=== PATIENT | female | born 1950 | race Caucasian/White ===

== ENCOUNTER 2019-03-03 08:55 | Observation (INO) | payer MEDICARE, OTHER, MEDICAID ==
[2019-03-03] MEDS ORDERED: Sodium Chloride 0.9% 1,000 ML IV ONE (09:16)
--- NOTE | 2019-03-03 09:27 | EDM.PDOC ---
ED HPI GENERAL MEDICAL PROBLEM - General Chief Complaint: Genitourinary Problem Stated Complaint: POSSIBLE UTI Time Seen by Provider: 03/03/19 09:22 Source of Information: Reports: Patient, Long Term Records History Limitations: Reports: Other (Dementia) - History of Present Illness INITIAL COMMENTS - FREE TEXT/NARRATIVE: Sent from [facility] with fever and confusion since 0400 today. Nurse at this facility is concerned she may have a UTI. Apparently, the patient fell yesterday but there were no injuries. She was unable to swallow her medications this morning. Patient denies pain, sob or N/V/D. She is incontinent of urine on presentation to the ED. Onset Date: 03/03/19 Onset Time: 04:00 Severity: Moderate Associated Symptoms: Reports: Confusion, Fever/Chills - Related Data Allergies Allergy/AdvReac Type Severity Reaction Status Date / Time No Known Allergies Allergy Verified 03/03/19 10:13 Home Meds: Home Meds Albuterol [Proventil HFA] 2 puff INH Q4H PRN 04/04/15 [History] Aspirin [Halfprin] 81 mg PO DAILY@119904/04/15 [History] Divalproex Sodium [Depakote ER] 1,000 mg PO BEDTIME 04/04/15 [History] Docusate Sodium [Colace] 200 mg PO BID@04/04/15 [History] Hydrochlorothiazide 25 mg PO DAILY@119904/04/15 [History] Levothyroxine Sodium 50 mcg PO DAILY@0700 04/04/15 [History] Losartan Potassium [Cozaar] 100 mg PO DAILY@119904/04/15 [History] Nitroglycerin [Nitrostat] 0.4 mg SL ASDIRECTED PRN 04/04/15 [History] Omeprazole [Prilosec] 20 mg PO DAILY@04/04/15 [History] Sertraline [Zoloft] 200 mg PO 1200 04/04/15 [History] metFORMIN [Glucophage] 500 mg PO WITHBREAKFAST 04/04/15 [History] Acetaminophen/Diphenhydramine [Tylenol Pm Ex-Strength Caplet] 2 ea PO BEDTIME [History] LORazepam [Ativan] 0.5 mg PO BEDTIME 10/29/15 [History] Acetaminophen [Tylenol] 650 mg PO Q4H PRN 05/19/18 [History] Calcium Carbonate/Vitamin D3 [Calcium 500 + Vit D Caplet] 3 each PO DAILY [History] Carvedilol [Coreg] 6.25 mg PO BID 05/19/18 [History] Cholecalciferol (Vitamin D3) [Vitamin D3] 2,000 unit PO DAILY 05/19/18 [History] Donepezil [Aricept] 5 mg PO BEDTIME 05/19/18 [History] Menthol [Biofreeze] 1 applic TOP ASDIRECTED PRN 05/19/18 [History] Oxybutynin Chloride [Oxybutynin Chloride ER] 15 mg PO BEDTIME 05/19/18 [History] Polyethylene Glycol 3350 [MiraLAX] 1 tsp PO DAILY PRN 05/19/18 [History] Triamcinolone Acetonide [Triamcinolone Acetonide 0.1% Crm] 1 applic TOP TID PRN 05/19/18 [History] atorvaSTATin [Lipitor] 40 mg PO DAILY@1200 05/19/18 [History] Amoxicillin/Clavulanate K [Augmentin 875-125 MG] 1 tab PO BID #10 tablet [Rx] Past Medical History HEENT History: Reports: Cataract, Hard of Hearing, Impaired Vision Cardiovascular History: Reports: CAD, Cardiomyopathy, High Cholesterol, Hypertension, Other (See Below) (LBBB) Respiratory History: Reports: Asthma, COPD, Other (See Below) Other Respiratory History: PHARYNGITIS Gastrointestinal History: Reports: Colon Polyp, GERD Genitourinary History: Reports: Urinary Incontinence, Other (See Below) Other Genitourinary History: BENIGN ESSENTIAL HEMATURIA 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 DESIGNER 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: Reports: , Other (See Below) Other PROSTHETIC MAKEUP DESIGNER History: MISCARRIAGE Musculoskeletal History: Reports: Back Pain, Chronic, Fracture, Neck Pain, Chronic, Other (See Below) Other Musculoskeletal History: ABNORMAL BODY STRUCTURE PER HX, NEUROMUSCULAR DISORDER Neurological History: Reports: Alzheimers Disease, Head Trauma, Neuropathy, Peripheral Psychiatric History: Reports: Anxiety, Bipolar, Depression Endocrine/Metabolic History: Reports: Diabetes, Type II, Hypothyroidism Hematologic History: Reports: None Immunologic History: Reports: None Oncologic (Cancer) History: Reports: None Dermatologic History: Reports: None - Infectious Disease History Infectious Disease History: Reports: Chicken Pox, Measles, Mumps - Past Surgical History Head Surgeries/Procedures: Reports: None HEENT Surgical History: Reports: Cataract Surgery, Tonsillectomy, Visual Oncologic Surgical History: Reports: None Dermatological Surgical History: Reports: None Social & Family History - Family History Family Medical History: Noncontributory - Caffeine Use Caffeine Use: Reports: Soda Other Caffeine Use: 6 per day ED ROS GENERAL - Review of Systems Review Of Systems: Unable To Obtain (secondary to dementia) ED EXAM, GENERAL - Physical Exam Exam: See Below Exam Limited By: No Limitations General Appearance: Alert, WD/WN, No Apparent Distress Eye Exam: Bilateral Eye: EOMI, PERRL Ears: Normal External Exam Nose: Normal Inspection Throat/Mouth: No Airway Compromise, Other (oropharynx dry) Head: Atraumatic, Normocephalic Neck: Normal Inspection, Supple, Non-Tender, Full Range of Motion Respiratory/Chest: No Respiratory Distress, Lungs Clear, Normal Breath Sounds Cardiovascular: Regular Rate, Rhythm, No Murmur GI/Abdominal: Normal Bowel Sounds, Soft, Non-Tender Back Exam: Full Range of Motion Extremities: Normal Range of Motion Neurological: Alert, No Motor/Sensory Deficits, Other (GCS 14) Skin Exam: Warm, Dry, Intact EKG INTERPRETATION EKG Date: 03/03/19 Time: 10:58 Rhythm: NSR Rate (Beats/Min): 97 [place]: Normal P-Wave: Present QRS: LBBB ST-T: Normal QT: Normal Comparison: No Change (05/19/18) Course - Vital Signs Last Recorded V/S: Last Vital Signs Temp 37.4 C 03/03/19 09:46 Pulse 97 03/03/19 09:46 Resp 22 H 03/03/19 09:46 BP 94/62 03/03/19 09:46 Pulse Ox 90 L 03/03/19 09:46 - Orders/Labs/Meds Orders: Active Orders 24 hr Category Date Time Status Admission Status [Patient Status] [ADT] Routine ADT 03/03/19 10:56 Ordered Accu Check [Blood Glucose Check, Bedside] [RC] ONETIME Care 03/03/19 09:22 Active EKG Documentation Completion [RC] ASDIRECTED Care 03/03/19 09:10 Active Kelsey Catheter Insertion [Insert Urinary Catheter] [OM. Care 03/03/19 09:15 Ordered PC] Q24H Urinary Catheter Assessment [RC] QSHIFT Care 03/03/19 09:10 Active CULTURE BLOOD [BC] Urgent Lab 03/03/19 09:30 Received CULTURE BLOOD [BC] Urgent Lab 03/03/19 09:35 Received CULTURE URINE [RM] Stat Lab 03/03/19 09:13 Received Levofloxacin/Dextrose 5%-Water [Levaquin in D5W 750 MG/ Med 03/03/19 10:16 Active 150 ML] 750 mg Premix Bag 1 bag IV ONETIME Sodium Chloride 0.9% [Normal Saline] 1,000 ml Med 03/03/19 09:16 Active IV .BOLUS Blood Culture x2 Reflex Set [OM.PC] Urgent Oth 03/03/19 09:10 Ordered EKG 12 Lead [EK] Stat Ther 03/03/19 09:10 Ordered Medication Orders Sodium Chloride (Normal Saline) 1,000 mls @ 500 mls/hr IV .BOLUS ONE Stop: 03/03/19 11:15 Last Admin: 03/03/19 09:27 Dose: 500 mls/hr Levofloxacin/Dextrose 750 mg/ (Premix) 150 mls @ 100 mls/hr IV ONETIME ONE Stop: 03/03/19 11:45 Last Admin: 03/03/19 10:30 Dose: 100 mls/hr Labs: Laboratory Tests 03/03/19 03/03/19 03/03/19 Range/Units 09:13 09:30 09:30 WBC 5.8 (4.5-12.0) X10-3/uL RBC 4.87 (3.23-5.20) x10(6)uL Hgb 13.8 (11.5-15.5) g/dL Hct 41.6 (30.0-51.3) % MCV 85.4 (80-96) fL MCH 28.3 (27.7-33.6) pg MCHC 33.2 (32.2-35.4) g/dL RDW 13.8 (11.5-15.5) % Plt Count 99 L (125-369) X10(3)uL Neut % (Auto) 73.6 (46-82) % Lymph % (Auto) 12.8 L (13-37) % Williams % (Auto) 12.6 H (4-12) % Eos % (Auto) 0 L (1.0-5.0) % Baso % (Auto) 1 (0-2) % Neut # (Auto) 4.3 (1.6-8.3) # Lymph # (Auto) 0.7 (0.6-5.0) # Williams # (Auto) 0.7 (0.0-1.3) # Eos # (Auto) 0.0 (0.0-0.8) # Baso # (Auto) 0.0 (0.0-0.2) # Sodium 138 (135-145) mmol/L Potassium 3.8 (3.5-5.3) mmol/L Chloride 104 (100-110) mmol/L Carbon Dioxide 28 (21-32) mmol/L BUN 11 (7-18) mg/dL Creatinine 0.7 (0.55-1.02) mg/dL Est Cr Clr Drug Dosing 63.63 mL/min Estimated GFR (MDRD) > 60 (>60) BUN/Creatinine Ratio 15.7 (9-20) Glucose 109 (80-116) mg/dL Lactic Acid (0.4-2.2) mmol/L Calcium 9.0 (8.6-10.2) mg/dL Total Bilirubin 0.3 (0.1-1.3) mg/dL AST 21 D (5-25) IU/L ALT 16 D (12-36) U/L Alkaline Phosphatase 49 L (56-112) IU/L Total Protein 6.9 (6.0-8.0) g/dL Albumin 3.0 L (3.2-4.6) g/dL Globulin 3.9 g/dL Albumin/Globulin Ratio 0.8 Urine Color Yellow (YELLOW) Urine Appearance Cloudy (CLEAR) Urine pH 8.0 H (5.0-6.5) Ur Specific [place] 1.010 (1.010-1.025) Urine Protein 30 H (NEGATIVE) mg/dL Urine Glucose (UA) Normal (NORMAL) mg/dL Urine Ketones Negative (NEGATIVE) mg/dL Urine Occult Blood Large (NEGATIVE) Urine Nitrite Positive H (NEGATIVE) Urine Bilirubin Negative (NEGATIVE) Urine Urobilinogen Normal (NEGATIVE) mg/dL Ur Leukocyte Esterase Large (NEGATIVE) Urine RBC >100 H (0-5) Urine WBC >100 H (0-5) Ur Squamous Epith Cells Few H (NS,R,O) Urine Bacteria Many H (NS) 03/03/19 Range/Units 09:30 WBC (4.5-12.0) X10-3/uL RBC (3.23-5.20) x10(6)uL Hgb (11.5-15.5) g/dL Hct (30.0-51.3) % MCV (80-96) fL MCH (27.7-33.6) pg MCHC (32.2-35.4) g/dL RDW (11.5-15.5) % Plt Count (125-369) X10(3)uL Neut % (Auto) (46-82) % Lymph % (Auto) (13-37) % Williams % (Auto) (4-12) % Eos % (Auto) (1.0-5.0) % Baso % (Auto) (0-2) % Neut # (Auto) (1.6-8.3) # Lymph # (Auto) (0.6-5.0) # Williams # (Auto) (0.0-1.3) # Eos # (Auto) (0.0-0.8) # Baso # (Auto) (0.0-0.2) # Sodium (135-145) mmol/L Potassium (3.5-5.3) mmol/L Chloride (100-110) mmol/L Carbon Dioxide (21-32) mmol/L BUN (7-18) mg/dL Creatinine (0.55-1.02) mg/dL Est Cr Clr Drug Dosing mL/min Estimated GFR (MDRD) (>60) BUN/Creatinine Ratio (9-20) Glucose (80-116) mg/dL Lactic Acid 1.2 (0.4-2.2) mmol/L Calcium (8.6-10.2) mg/dL Total Bilirubin (0.1-1.3) mg/dL AST (5-25) IU/L ALT (12-36) U/L Alkaline Phosphatase (56-112) IU/L Total Protein (6.0-8.0) g/dL Albumin (3.2-4.6) g/dL Globulin g/dL Albumin/Globulin Ratio Urine Color (YELLOW) Urine Appearance (CLEAR) Urine pH (5.0-6.5) Ur Specific [place] (1.010-1.025) Urine Protein (NEGATIVE) mg/dL Urine Glucose (UA) (NORMAL) mg/dL Urine Ketones (NEGATIVE) mg/dL Urine Occult Blood (NEGATIVE) Urine Nitrite (NEGATIVE) Urine Bilirubin (NEGATIVE) Urine Urobilinogen (NEGATIVE) mg/dL Ur Leukocyte Esterase (NEGATIVE) Urine RBC (0-5) Urine WBC (0-5) Ur Squamous Epith Cells (NS,R,O) Urine Bacteria (NS) Meds: Medications Generic Name Dose Route Start Last Admin Trade Name Freq PRN Reason Stop Dose Admin Sodium Chloride 1,000 mls @ 500 mls/hr 03/03/19 09:16 03/03/19 09:27 Normal Saline IV 03/03/19 11:15 500 mls/hr .BOLUS ONE Administration Levofloxacin/Dextrose 750 mg/ 150 mls @ 100 mls/hr 03/03/19 10:16 03/03/19 10 :30 Premix IV 03/03/19 11:45 100 mls/hr ONETIME ONE Administration Discontinued Medications Generic Name Dose Route Start Last Admin Trade Name Freq PRN Reason Stop Dose Admin Acetaminophen 650 mg 03/03/19 09:30 03/03/19 10:00 Tylenol PO 03/03/19 09:31 650 mg NOW ONE Administration Ceftriaxone Sodium 2 gm 03/03/19 10:19 03/03/19 10:23 Rocephin IVPUSH 03/03/19 10:20 2 gm ONETIME ONE Administration - Radiology Interpretation Free Text/Narrative:: CXR: possible infiltrate vs. fibrosis vs. edema (per Dr. Bailey). CT Head and C-spine: no acute abnormalities (per Dr. Bailey). - Re-Assessments/Exams Free Text/Narrative Re-Assessment/Exam: 03/03/19 11:01 Dr. Hughes will admit to observation. 03/03/19 11:05 BP 136/68, HR 88 Departure - Departure Time of Disposition: 11:01 Disposition: Refer to Observation Condition: Fair Clinical Impression: UTI, Urinary tract infectious disease Altered mental status Qualifiers: Altered mental status type: unspecified Qualified Code(s): R41.82 - Altered mental status, unspecified - Discharge Information *PRESCRIPTION DRUG MONITORING PROGRAM REVIEWED*: No *COPY OF PRESCRIPTION DRUG MONITORING REPORT IN PATIENT [place]: Not Applicable - My Orders Last 24 Hours: My Active Orders 03/03/19 09:10 EKG Documentation Completion [RC] ASDIRECTED Urinary Catheter Assessment [RC] QSHIFT Blood Culture x2 Reflex Set [OM.PC] Urgent EKG 12 Lead [EK] Stat 03/03/19 09:13 CULTURE URINE [RM] Stat 03/03/19 09:15 Kelsey Catheter Insertion [Insert Urinary Catheter] [OM.PC] Q24H 03/03/19 09:16 Sodium Chloride 0.9% [Normal Saline] 1,000 ml IV .BOLUS 03/03/19 09:22 Accu Check [Blood Glucose Check, Bedside] [RC] ONETIME 03/03/19 09:30 CULTURE BLOOD [BC] Urgent 03/03/19 09:35 CULTURE BLOOD [BC] Urgent 03/03/19 10:16 Levofloxacin/Dextrose 5%-Water [Levaquin in D5W 750 MG/150 ML] 750 mg Premix Bag 1 bag IV ONETIME 03/03/19 10:56 Admission Status [Patient Status] [ADT] Routine - Assessment/Plan Last 24 Hours: My Active Orders 03/03/19 09:10 EKG Documentation Completion [RC] ASDIRECTED Urinary Catheter Assessment [RC] QSHIFT Blood Culture x2 Reflex Set [OM.PC] Urgent EKG 12 Lead [EK] Stat 03/03/19 09:13 CULTURE URINE [RM] Stat 03/03/19 09:15 Kelsey Catheter Insertion [Insert Urinary Catheter] [OM.PC] Q24H 03/03/19 09:16 Sodium Chloride 0.9% [Normal Saline] 1,000 ml IV .BOLUS 03/03/19 09:22 Accu Check [Blood Glucose Check, Bedside] [RC] ONETIME 03/03/19 09:30 CULTURE BLOOD [BC] Urgent 03/03/19 09:35 CULTURE BLOOD [BC] Urgent 03/03/19 10:16 Levofloxacin/Dextrose 5%-Water [Levaquin in D5W 750 MG/150 ML] 750 mg Premix Bag 1 bag IV ONETIME 03/03/19 10:56 Admission Status [Patient Status] [ADT] Routine
[2019-03-03] MEDS ORDERED: Acetaminophen 325 MG Tab PO ONE (09:30)
[2019-03-03] MEDS ORDERED: Levofloxacin/Dextrose 5%-Water 750 MG in Premix Bag 1 BAG IV ONE (10:16)
[2019-03-03] MEDS ORDERED: cefTRIAXone 2 GM Vial IVPUSH ONE (10:19)
--- NOTE | 2019-03-03 10:53 | CR ---
INDICATION: Fever. CHEST: AP upright portable view of the chest, 03/03/19, was compared with 05/19 and again revealed the heart to be somewhat enlarged in appearance. The aorta is tortuous with calcification in the arch. The pulmonary vasculature appears to be mildly congested, raising question of a mild or chronic early CHF. Interstitial fibrosis could also be present. No consolidating pneumonia or effusion was seen. IMPRESSION: Fairly stable appearance of the chest, compared with 05/19/18 - ASHD, mild cardiomegaly, question possibility of mild chronic or early CHF and/ or interstitial fibrosis. The possibility of interstitial - unusual pneumonia would be a consideration additionally. Report was called to Dr. Huitron on 03/03/19 at 1021 hours. [facility]
--- NOTE | 2019-03-03 10:55 | CT ---
INDICATION: Fell yesterday, dementia, complains of pain, possibly in the neck area. CT HEAD WITHOUT CONTRAST: Spiral 3.75 mm axial sections were obtained through the brain without contrast and compared with MRI of 10/16/15. Total exam DLP = 1,296.53 mGy-cm. The paranasal sinuses and mastoid air cells were well-aerated. No cranial abnormality was identified. Calcifications are noted in the internal carotid arteries. No shift of midline structures was seen. The ventricles are prominent, compatible with central atrophy, and appear slightly more prominent than on the previous MRI of 2016, compatible with progressive central atrophy. White matter changes are again noted, compatible with a mild degree of microvascular disease, although other cause of leukoencephalopathy cannot be excluded. No evidence of bleeding site or hematoma was noted. Orbits appear to be intact. IMPRESSION: 1. Progressive central atrophy with no acute intracranial abnormality identified. 2. Mild microvascular disease - cerebrovascular disease. Report was called to Dr. Huitron on 03/03/19 at 1021 hours. [facility]
--- NOTE | 2019-03-03 10:58 | CT ---
INDICATION: Fell yesterday, dementia, complains of pain, possibly in the neck area. CT CERVICAL SPINE: Spiral 2.5 mm axial sections were obtained through the cervical spine with sagittal and coronal reconstructions, 03/03/19 - no comparisons. Total exam DLP = 317.90 mGy-cm. Mild degenerative changes are noted at the atlantoodontoid joint. The odontoid and atlas appear to be intact. Degenerative changes are noted at uncinate joints in general, most severe at the C3-4 and especially C4-5 levels. Decreased disk space is also noted at C4- 5 with hypertrophic spurring anteriorly and posteriorly off vertebral bodies. Decreased disk space was seen at C5-6 to a milder degree with no significant hypertrophic changes anteriorly off vertebral bodies at that level. Vertebral elements appear to be fairly well-aligned without a definite acute fracture or dislocation. Prevertebral space and bone density appear to be normal. Carotid artery calcifications are noted bilaterally. Lungs included on the study have an appearance suggesting central lobular emphysema. IMPRESSION: 1. Osteoarthritis and degenerative disk disease, as noted above, with no acute fracture or dislocation identified. 2. Probable emphysema in the lungs. Report was called to Dr. Huitron on 03/03/19 at 1021 hours. [facility]
[2019-03-03] MEDS ORDERED: Acetaminophen 325 MG Tab PO PRN (12:01)
[2019-03-03] MEDS ORDERED: Albuterol 8 GM Inhaler INH PRN (12:01)
[2019-03-03] MEDS: Sodium Chloride 0.9% 1,000 ML IV SCH (13:15)
[2019-03-03] MEDS: Levothyroxine 50 MCG Tab*PTOM PO SCH (14:24)
--- NOTE | 2019-03-03 14:52 | HP ---
ADMISSION DATE: 03/03/2019 HISTORY: Ms. Cope is a 68-year-old resident of [facility] with a history of dementia with behavioral disorder, history of bipolar disorder, coronary artery disease with cardiomyopathy, hypertension, and hypothyroidism. According to the staff at the [facility] where she resides she fell yesterday without apparently injuring herself. This morning, she was weak generally. She had difficulty swallowing and was more confused. She apparently had a fever as well. For this reason, she was sent to the emergency room where evaluation found her to have a significant urinary tract infection. She is now admitted with UTI with associated delirium, weakness, and dehydration. The patient is a poor historian. She does report that she is here for a bad bladder infection and she remembers that she lives at the [facility]. PAST MEDICAL HISTORY: 1. She has had dementia of bipolar affect disorder. 2. She is status post T and A. 3. Cataract surgery. 4. She has a history of anxiety. 5. Type 2 diabetes. 6. Hypothyroidism. 7. Asthma with COPD. 8. She has been diagnosed with cardiomyopathy and has a chronic left bundle branch block on EKG. MEDICATIONS: 1. Albuterol inhaler p.r.n. 2. Aspirin 81 mg daily. 3. Depakote ER 1000 mg at bedtime. 4. Colace 200 mg b.i.d. 5. Hydrochlorothiazide 25 mg daily. 6. Levothyroxine 50 mcg daily. 7. Losartan 100 mg daily. 8. Nitroglycerin sublingual p.r.n. 9. Omeprazole 20 mg daily. 10.Zoloft 200 mg daily. 11.Metformin 500 mg daily. 12.Tylenol PM 2 at bedtime. 13.Lorazepam 0.5 mg at bedtime. 14.Tylenol p.r.n. 15.Calcium with D 3 tablets daily. 16.Carvedilol 6.25 mg b.i.d. 17.Vitamin D3 2000 units daily. 18.Aricept 5 mg at bedtime. 19.Topical Biofreeze p.r.n. 20.Oxybutynin ER 15 one at bedtime. 21.MiraLAX 1 teaspoon daily p.r.n. 22.Triamcinolone cream t.i.d. p.r.n. 23.Atorvastatin 40 mg daily. ALLERGIES: None known. HABITS: She reports she smokes a pack a day of cigarettes and is trying to quit, she has smoked for many years. REVIEW OF SYSTEMS: GENERAL: No seizure, syncope, or recent significant weight change. SKIN: Negative for rash. HEENT: No recent changes in hearing or vision. No sore throat or URI. RESPIRATORY: No cough or dyspnea. No chest pain or palpitations. No abdominal pain. She has had a poor appetite, however. No diarrhea. : She denies burning with urination. MUSCULOSKELETAL: No swelling, joint inflammation, or skin rash. PHYSICAL EXAMINATION: GENERAL: She is alert and answers questions appropriately. She is, however, very forgetful with obvious dementia. VITAL SIGNS: Blood pressure 125/44; respirations 18; pulse 84; temperature max 99.3 in the emergency room, 97 currently; O2 saturation 90% on room air; weight 165 pounds. SKIN: Anicteric. Warm, dry, without rash. HEENT: Show pupils to be equal and reactive. Oropharynx clear. Mouth dry. LUNGS: Clear to the bases. BACK: Straight. She has slight tenderness to percussion over the right flank, none on the left. HEART: Regular with a soft end-systolic murmur directly over the mitral area. ABDOMEN: Obese, soft, nontender. No masses or organomegaly. EXTREMITIES: Warm, well perfused. Good pulses. No edema. NEUROLOGIC: Reveals her to be extremely forgetful. Motor exam appears symmetric. LABORATORY DATA: White count 5800, hemoglobin 13.8, platelets 99,000, MCV 85. Electrolytes normal. Creatinine 0.7. Urine, positive nitrite, greater than 100 red cells, greater than 100 white cells. ASSESSMENT: 1. Acute right pyelonephritis with delirium. 2. Chronic dementia. 3. Bipolar disorder. 4. Coronary artery disease. 5. Hypothyroidism. 6. Chronic anxiety. 7. Chronic incontinence. PLAN: She was given a bolus of IV fluid in the emergency room and has perked up some already. She also received 1 g of Rocephin IV and currently is getting 750 mg of Levaquin IV onetime. We will continue to follow her vitals. Resume her important home medications and anticipate return to the [facility] upon discharge within 24 to 48 hours. /[id number] KISHA/TIM
[2019-03-03] MEDS: DOCUSATE SODIUM 100 MG PO SCH (19:54)
[2019-03-03] MEDS: CARVEDILOL 6.25 MG PO SCH (19:58)
[2019-03-03] MEDS: Non-Formulary Medication 1 Each (Mineral Oil, Light/Mineral Oil [Soothe Xp Eye Drops] 1 DR EYEBOTH SCH (20:02)
[2019-03-03] MEDS ORDERED: OXYBUTYNIN CHLORIDE 15 MG PO SCH (21:00)
[2019-03-03] MEDS ORDERED: DIVALPROEX SODIUM 500 MG PO SCH (21:00)
[2019-03-03] MEDS ORDERED: LORazepam 0.5 MG Tab PO SCH (21:00)
[2019-03-04] MEDS: Sodium Chloride 0.9% 1,000 ML IV SCH (00:30)
[2019-03-04] MEDS: Levothyroxine 50 MCG Tab*PTOM PO SCH (06:06)
[2019-03-04] MEDS: Non-Formulary Medication 1 Each (Mineral Oil, Light/Mineral Oil [Soothe Xp Eye Drops] 1 DR EYEBOTH SCH (09:00)
[2019-03-04] MEDS ORDERED: cefTRIAXone 1 GM Vial IVPUSH ONE (10:00)
[2019-03-04] MEDS ORDERED: Non-Formulary Medication 1 Each (Atorvastatin [Lipitor] 40 MG) PO SCH (12:00)
[2019-03-04] MEDS ORDERED: ASPIRIN 81 MG PO SCH (12:00)
[2019-03-04] MEDS ORDERED: LOSARTAN 100 MG PO SCH (12:00)
[2019-03-04] MEDS: CARVEDILOL 6.25 MG PO SCH (12:24)
[2019-03-04] MEDS: DOCUSATE SODIUM 100 MG PO SCH (12:24)
[2019-03-04 12:27] VITALS: BP 136/76
[2019-03-04] MEDS ORDERED: Cephalexin 500 MG Cap PO SCH (14:00)
[2019-03-04] MEDS ORDERED: DONEPEZIL 5 MG PO SCH (21:00)
--- NOTE | 2019-03-06 09:13 | DISCH ---
DISCHARGE DATE: 03/04/2019 PRIMARY FINAL DIAGNOSIS: Acute right-sided pyelonephritis. OTHER DIAGNOSES: Asthma, bipolar disorder with anxiety and behavioral problems, dementia, hypothyroidism, hypertension, and mixed urinary incontinence. OPERATIONS: None. COMPLICATIONS: None. HOSPITAL COURSE: Ms. Cope is a 68-year-old resident of the [facility], who was admitted through the emergency room because of fever, flank pain, and delirium. She was found to have acute urinary tract infection with tenderness over the right flank. The patient was given Rocephin IV in the emergency room followed by IV Levaquin. Initial fever to 100.2 degrees, defervesced rapidly to normal. Her blood pressure remained satisfactory. Urine culture came back gram-negative rods. By the next day, she was alert and improved. She was eating and was judged satisfactory for discharge. She is discharged back to her residence in stable condition on the following medications. DISCHARGE MEDICATIONS: 1. Cephalexin 500 mg 3 times a day for 1 week. 2. Sertraline 200 mg daily. 3. MiraLAX 1 teaspoon daily. 4. Topical Biofreeze p.r.n. 5. Hydrochlorothiazide 25 mg daily. 6. OCuSOFT Lid Scrub p.r.n. 7. Vitamin D3 2000 units daily. 8. Calcium 1500 mg daily. 9. Tylenol PM one at bedtime. 10.Oxybutynin ER 15 one at bedtime. 11.Mineral oil eye drops p.r.n. 12.Losartan 100 mg daily. 13.Lorazepam 0.5 mg at bedtime. 14.Levothyroxine 50 mcg daily. 15.Donepezil 5 mg daily. 16.Docusate 200 mg b.i.d. 17.Depakote ER 1000 mg at bedtime. 18.Carvedilol 6.25 mg b.i.d. 19.Atorvastatin 80 mg daily. 20.Aspirin 81 mg daily. 21.Albuterol inhaler p.r.n. 22.Tylenol p.r.n. FOLLOWUP: She is to have followup with her regular physician on a p.r.n. basis. /[id number] KISHA/TIM
== END 2019-03-04 14:05 | disposition home health service (06) ==
LOC: FB.ED 08:55 → FB.MS 11:00
PROVIDERS: ADMIT Family Medicine; ATTEND Family Medicine
DX: N10 Acute pyelonephritis (principal); N39.46 Mixed incontinence; F03.90 Unspecified dementia, unspecified severity, without behavioral disturbance, psychotic disturbance, mood disturbance, and anxiety; F31.9 Bipolar disorder, unspecified; F41.9 Anxiety disorder, unspecified; E03.9 Hypothyroidism, unspecified; E11.9 Type 2 diabetes mellitus without complications; J44.9 Chronic obstructive pulmonary disease, unspecified; I10 Essential (primary) hypertension; I25.10 Atherosclerotic heart disease of native coronary artery without angina pectoris; Z79.899 Other long term (current) drug therapy; Z79.82 Long term (current) use of aspirin; Z79.84 Long term (current) use of oral hypoglycemic drugs
CPT/HCPCS: 36415; 51702; 70450; 71045; 72125; 80053; 81001; 82962; 83605; 85025; 87040; 87086; 87088; 87186; 93005; 96361; 96365; 96375; 96376; 99285-25; A9270-GY; G0378; J0696; J1956; J7030

== ENCOUNTER 2020-04-12 22:13 | Emergency (ER) | payer MEDICARE, OTHER, MEDICAID ==
--- NOTE | 2020-04-12 22:38 | EDM.PDOC ---
ED HPI GENERAL MEDICAL PROBLEM - General Stated Complaint: FELL Time Seen by Provider: 04/12/20 22:15 Source of Information: Reports: Patient, EMS, [facility] Records History Limitations: Reports: No Limitations - History of Present Illness INITIAL COMMENTS - FREE TEXT/NARRATIVE: fell 2 times today States she slid out of her wheelchair and hit the back of her head then she fell as she was walking from bathroom, hit her left shoulder and left flank States she is taking antibiotics for UTI despite the treatment for UTI still has weakness , dizziness and fatigue, causing her to fall Onset: Today Onset Date: 04/12/20 Location: Reports: Head (large swelling at the side of her head , tender non fluctuant on right parietal region) Quality: Reports: Ache, Dull, Pressure Worsens with: Reports: Movement Context: Reports: Trauma (slipped and fell from her wheelchair) Associated Symptoms: Reports: Headaches, Malaise, Weakness Treatments APPRAISAL MANAGER: Reports: Spinal Immobilization Head Pain Score (Numeric/FACES): 10 - Related Data Allergies Allergy/AdvReac Type Severity Reaction Status Date / Time No Known Allergies Allergy Verified 03/03/19 10:13 Home Meds: Home Meds Albuterol [Proventil HFA] 2 puff INH Q4H PRN 04/04/15 [History] Aspirin [Halfprin] 81 mg PO DAILY@119904/04/15 [History] Divalproex Sodium [Depakote ER] 1,000 mg PO BEDTIME 04/04/15 [History] Docusate Sodium [Colace] 200 mg PO 04/04/15 [History] Hydrochlorothiazide 25 mg PO DAILY@119904/04/15 [History] Losartan Potassium [Cozaar] 100 mg PO DAILY@119904/04/15 [History] Sertraline [Zoloft] 200 mg PO 119904/04/15 [History] Acetaminophen/Diphenhydramine [Tylenol Pm Ex-Strength Caplet] 2 tab PO BEDTIME 10/29/15 [History] LORazepam [Ativan] 0.5 mg PO BEDTIME 10/29/15 [History] Acetaminophen [Tylenol] 650 mg PO Q4H PRN 05/19/18 [History] Cholecalciferol (Vitamin D3) [Vitamin D3] 2,000 unit PO DAILY 05/19/18 [History] Donepezil [Aricept] 5 mg PO BEDTIME 05/19/18 [History] Menthol [Biofreeze] 1 applic TOP ASDIRECTED PRN 05/19/18 [History] Oxybutynin Chloride [Oxybutynin Chloride ER] 15 mg PO BEDTIME 05/19/18 [History] atorvaSTATin [Lipitor] 40 mg PO DAILY@1200 05/19/18 [History] carvediloL [Coreg] 6.25 mg PO 12,20 05/19/18 [History] polyethylene glycoL 3350 [MiraLAX] 1 tsp PO DAILY PRN 05/19/18 [History] Calcium Carbonate [Oysco-500] 1,500 mg PO DAILY 03/03/19 [History] Calcium Carbonate [Tums] 500 mg PO BID PRN 03/03/19 [History] Eyelid Cleanser Combination 5 [Ocusoft Lid Scrub] 1 each EYEBOTH BEDTIME 0 03/03/19 [History] Levothyroxine [Synthroid] 50 mcg PO DAILY 03/03/19 [History] Mineral Oil, Light/Mineral Oil [Soothe Xp Eye Drops] 1 drop EYEBOTH BID 03/03/19 [History] cephALEXin [Cephalexin] 500 mg PO TID #21 tablet 03/04/19 [Rx] Past Medical History HEENT History: Reports: Cataract, Hard of Hearing, Impaired Vision Cardiovascular History: Reports: CAD, Cardiomyopathy, High Cholesterol, Hypertension Respiratory History: Reports: Asthma, COPD, Other (See Below) Other Respiratory History: PHARYNGITIS Gastrointestinal History: Reports: Colon Polyp, GERD Genitourinary History: Reports: Urinary Incontinence, Other (See Below) Other Genitourinary History: BENIGN ESSENTIAL HEMATURIA JACQUARD CARD CUTTER History: Reports: , Other (See Below) Other JACQUARD CARD CUTTER History: MISCARRIAGE Musculoskeletal History: Reports: Back Pain, Chronic, Fracture, Neck Pain, Chronic, Other (See Below) Other Musculoskeletal History: ABNORMAL BODY STRUCTURE PER HX, NEUROMUSCULAR DISORDER Neurological History: Reports: Alzheimers Disease, Head Trauma, Neuropathy, Peripheral Psychiatric History: Reports: Anxiety, Bipolar, Depression Endocrine/Metabolic History: Reports: Diabetes, Type II, Hypothyroidism Hematologic History: Reports: None Immunologic History: Reports: None Oncologic (Cancer) History: Reports: None Dermatologic History: Reports: None - Infectious Disease History Infectious Disease History: Reports: Chicken Pox, Measles, Mumps - Past Surgical History Head Surgeries/Procedures: Reports: None HEENT Surgical History: Reports: Cataract Surgery, Tonsillectomy, Visual Oncologic Surgical History: Reports: None Dermatological Surgical History: Reports: None Social & Family History - Family History Family Medical History: Noncontributory - Caffeine Use Caffeine Use: Reports: Coffee, Soda Other Caffeine Use: 6 per day ED ROS GENERAL - Review of Systems Review Of Systems: See Below Constitutional: Denies: Fever, Chills, Malaise, Weakness, Fatigue HEENT: Denies: No Symptoms, Eye Pain Respiratory: Denies: No Symptoms Cardiovascular: Denies: No Symptoms Endocrine: Reports: Fatigue GI/Abdominal: Reports: No Symptoms Musculoskeletal: Reports: No Symptoms Skin: Reports: Bruising Neurological: Reports: Dizziness, Headache, Difficulty Walking, Gait Disturbance Psychiatric: Reports: Confusion Hematologic/Lymphatic: Reports: No Symptoms Immunologic: Reports: No Symptoms - Physical Exam Exam: See Below Exam Limited By: No Limitations General Appearance: Alert, WD/WN, No Apparent Distress, Lethargic Eye Exam: Bilateral Eye: EOMI Ears: Normal External Exam, Normal TMs Nose: Normal Inspection Throat/Mouth: Normal Lips Head Exam: Scalp Swelling, Scalp Abrasions, Scalp Hematoma Neck: Supple, Non-Tender Respiratory/Chest: Lungs Clear, Normal Breath Sounds Cardiovascular: Regular Rate, Rhythm Neuro Exam (Abbreviated): Alert, Oriented DTR: 2+: Achilles (R), Achilles (L) Extremities: No: Pedal Edema, Increased Warmth Psychiatric: Normal Affect Skin Exam: Warm Course - Vital Signs Last Recorded V/S: Last Vital Signs Temp Pulse 52 L 04/13/20 04:31 Resp 14 04/13/20 04:31 BP 154/50 H 04/13/20 04:31 Pulse Ox 98 04/13/20 04:31 - Orders/Labs/Meds Orders: Active Orders 24 hr Category Date Time Status Head wo Cont [CT] Stat Exams 04/12/20 22:31 Taken Labs: Laboratory Tests 04/13/20 Range/Units 00:35 Urine Color Yellow (YELLOW) Urine Appearance Slightly cloudy (CLEAR) Urine pH 7.0 H (5.0-6.5) Ur Specific [place] 1.015 (1.010-1.025) Urine Protein Negative (NEGATIVE) mg/dL Urine Glucose (UA) Normal (NORMAL) mg/dL Urine Ketones 15 H (NEGATIVE) mg/dL Urine Occult Blood Moderate H (NEGATIVE) Urine Nitrite Negative (NEGATIVE) Urine Bilirubin Small H (NEGATIVE) Urine Urobilinogen Normal (NEGATIVE) mg/dL Ur Leukocyte Esterase Negative (NEGATIVE) Urine RBC 5-10 H (0-5) Urine WBC 0-5 (0-5) Ur Squamous Epith Cells Few H (NS,R,O) Amorphous Sediment Moderate Urine Bacteria Few H (NS) Meds: Medications Discontinued Medications Generic Name Dose Route Start Last Admin Trade Name Melania PRN Reason Stop Dose Admin Ceftriaxone Sodium 1 gm 04/13/20 01:43 04/13/20 02:47 Rocephin IM 04/13/20 01:44 1 gm ONETIME ONE Administration Losartan Potassium 50 mg 04/12/20 23:31 04/12/20 23:36 Cozaar PO 04/12/20 23:32 50 mg ONETIME ONE Administration Losartan Potassium 50 mg 04/13/20 02:01 04/13/20 02:47 Cozaar PO 04/13/20 02:02 50 mg ONETIME ONE Administration - Re-Assessments/Exams Free Text/Narrative Re-Assessment/Exam: 04/13/20 03:57 pt was also noted to have elevated BP, was given an extra dose of Losartan and BP monitored BP did slowly reduce to normal levels Xray left shoulder was also negative Head CT was negative pt given IV antibiotics to treat UTI 04/13/20 17:43 04/13/20 17:44 Departure - Departure Time of Disposition: 04:40 Disposition: Home, Self-Care 01 Condition: Fair Clinical Impression: UTI (urinary tract infection), Head injury due to trauma, HTN (hypertension) - Discharge Information *PRESCRIPTION DRUG MONITORING PROGRAM REVIEWED*: Not Applicable *COPY OF PRESCRIPTION DRUG MONITORING REPORT IN PATIENT [place]: Not Applicable Instructions: Urinary Tract Infection, Adult, [id number], Head Injury, Adult, [id number] Referrals: Zaki Eastman MD [Primary Care Provider] - Forms: ED Department Discharge - My Orders Last 24 Hours: My Active Orders 04/12/20 22:31 Head wo Cont [CT] Stat - Assessment/Plan Last 24 Hours: My Active Orders 04/12/20 22:31 Head wo Cont [CT] Stat
[2020-04-12] MEDS ORDERED: Losartan 50 MG Tab PO ONE (23:31)
[2020-04-13] MEDS ORDERED: cefTRIAXone 1 GM Vial IM ONE (01:43)
[2020-04-13] MEDS ORDERED: Losartan 50 MG Tab PO ONE (02:01)
[2020-04-13 05:06] VITALS: BP 154/50; PULSE 52
== END 2020-04-13 04:48 | disposition home or self-care (01) ==
LOC: FB.ED 22:13
DX: S00.03XA Contusion of scalp, initial encounter (principal); I10 Essential (primary) hypertension; N39.0 Urinary tract infection, site not specified; E78.00 Pure hypercholesterolemia, unspecified; I25.2 Old myocardial infarction; E11.42 Type 2 diabetes mellitus with diabetic polyneuropathy; J44.9 Chronic obstructive pulmonary disease, unspecified; F41.9 Anxiety disorder, unspecified; F31.9 Bipolar disorder, unspecified; E03.9 Hypothyroidism, unspecified; G30.9 Alzheimer's disease, unspecified; Z79.82 Long term (current) use of aspirin; Z79.899 Other long term (current) drug therapy; W01.10XA Fall on same level from slipping, tripping and stumbling with subsequent striking against unspecified object, initial encounter; Y92.002 Bathroom of unspecified non-institutional (private) residence as the place of occurrence of the external cause
CPT/HCPCS: 70450; 81001; 96372; 99284; A9270; J0696

== ENCOUNTER 2020-05-23 08:57 | Emergency (ER) | payer MEDICARE, OTHER, MEDICAID ==
--- NOTE | 2020-05-23 09:37 | EDM.PDOC ---
ED HPI GENERAL MEDICAL PROBLEM - General Chief Complaint: Fever Stated Complaint: FEVER Time Seen by Provider: 05/23/20 09:20 Source of Information: Reports: Patient, [facility] Records, Old Records History Limitations: Reports: Altered Mental Status (dementia) - History of Present Illness INITIAL COMMENTS - FREE TEXT/NARRATIVE: Kathy returns to [facility] from the [facility] by EMS with a 24 hrhx of inability to care for self, recent onset of fever to 101.6 deg F, and some SOB at rest. There has been no reported wheezing, cough, chest pain or palpitations. There is a PMH of Type II DM, incontinence, COPD. She denies chest pain or SOB, but is disorientated to place, date and circumstances of ED visit. Upon arrival, her temp was 96.6 deg F, RR 20, 02 sat 94% on RA. She did have a Covid 19 screening on May 17, results pending. back Pain Score (Numeric/FACES): 4 - Related Data Allergies Allergy/AdvReac Type Severity Reaction Status Date / Time No Known Allergies Allergy Verified 05/23/20 09:20 Home Meds: Home Meds Aspirin [Halfprin] 81 mg PO DAILY@1200 04/04/15 [History] Divalproex Sodium [Depakote ER] 1,000 mg PO BEDTIME 04/04/15 [History] Hydrochlorothiazide 25 mg PO DAILY@1200 04/04/15 [History] Losartan Potassium [Cozaar] 100 mg PO DAILY@1200 04/04/15 [History] Sertraline [Zoloft] 200 mg PO 1200 04/04/15 [History] Acetaminophen/Diphenhydramine [Tylenol Pm Ex-Strength Caplet] 2 tab PO BEDTIME 10/29/15 [History] LORazepam [Ativan] 0.5 mg PO BEDTIME 10/29/15 [History] Acetaminophen [Tylenol] 650 mg PO Q4H PRN 05/19/18 [History] Cholecalciferol (Vitamin D3) [Vitamin D3] 2,000 unit PO DAILY 05/19/18 [History] Donepezil [Aricept] 5 mg PO BEDTIME 05/19/18 [History] Oxybutynin Chloride [Oxybutynin Chloride ER] 15 mg PO BEDTIME 05/19/18 [History] atorvaSTATin [Lipitor] 40 mg PO DAILY@1200 05/19/18 [History] carvediloL [Coreg] 6.25 mg PO ,20 05/19/18 [History] polyethylene glycoL 3350 [MiraLAX] 1 tsp PO DAILY PRN 05/19/18 [History] Calcium Carbonate [Oysco-500] 1,500 mg PO DAILY 03/03/19 [History] Eyelid Cleanser Combination 5 [Ocusoft Lid Scrub] 1 each EYEBOTH BEDTIME 03/03/19 [History] Levothyroxine [Synthroid] 50 mcg PO DAILY 03/03/19 [History] Glycerin/Propylene Glycol [Artificial Tears Drops] 1 drop EYEBOTH BID 05/23/20 [History] Sennosides [Senna] 8.6 mg PO 05/23/20 [History] Past Medical History HEENT History: Reports: Cataract, Hard of Hearing, Impaired Vision Cardiovascular History: Reports: CAD, Cardiomyopathy, High Cholesterol, Hypertension Respiratory History: Reports: Asthma, COPD, Other (See Below) Other Respiratory History: PHARYNGITIS Gastrointestinal History: Reports: Colon Polyp, GERD Genitourinary History: Reports: Urinary Incontinence, Other (See Below) Other Genitourinary History: BENIGN ESSENTIAL HEMATURIA BODY SANDER History: Reports: , Other (See Below) Other BODY SANDER History: MISCARRIAGE Musculoskeletal History: Reports: Back Pain, Chronic, Fracture, Neck Pain, Chronic, Other (See Below) Other Musculoskeletal History: ABNORMAL BODY STRUCTURE PER HX, NEUROMUSCULAR DISORDER Neurological History: Reports: Alzheimers Disease, Head Trauma, Neuropathy, Peripheral Psychiatric History: Reports: Anxiety, Bipolar, Depression Endocrine/Metabolic History: Reports: Diabetes, Type II, Hypothyroidism Hematologic History: Reports: None Immunologic History: Reports: None Oncologic (Cancer) History: Reports: None Dermatologic History: Reports: None - Infectious Disease History Infectious Disease History: Reports: Chicken Pox, Measles, Mumps - Past Surgical History Head Surgeries/Procedures: Reports: None HEENT Surgical History: Reports: Cataract Surgery, Tonsillectomy, Visual Oncologic Surgical History: Reports: None Dermatological Surgical History: Reports: None Social & Family History - Family History Family Medical History: No Pertinent Family History - Caffeine Use Caffeine Use: Reports: Coffee, Soda Other Caffeine Use: 6 per day ED ROS GENERAL - Review of Systems Review Of Systems: Comprehensive ROS is negative, except as noted in HPI. ED EXAM, GENERAL - Physical Exam Exam: See Below Exam Limited By: Altered Mental Status (dementia) General Appearance: Alert, WD/WN, No Apparent Distress, Thin Eye Exam: Bilateral Eye: EOMI, Normal Inspection, PERRL Ears: Normal External Exam, Hearing Loss Nose: Normal Inspection Throat/Mouth: Other (edentulous) Head: Normocephalic Neck: Normal Inspection, Supple, Non-Tender Respiratory/Chest: No Respiratory Distress, Lungs Clear, No Accessory Muscle Use, Chest Non-Tender, Decreased Breath Sounds, Prolonged Expiration Cardiovascular: Regular Rate, Rhythm, No Edema, No Gallop, No JVD, Systolic Murmur GI/Abdominal: Normal Bowel Sounds, Soft, Non-Tender, No Organomegaly, No Distention, No Mass (Female) Exam: Deferred Rectal (Female) Exam: Deferred Back Exam: Normal Inspection Extremities: Normal Inspection Neurological: Alert, CN II-XII Intact, Confused, Slow to Respond Psychiatric: Flat Affect Skin Exam: Warm, Dry, Intact, Normal Color Lymphatic: No Adenopathy Course - Vital Signs Text/Narrative:: Following assessment, I obtained a CBC and CMP, both baseline. The UA noted some hematuria, UC set up. The chest x ray was baseline. The Covid 19 is pending. Last Recorded V/S: Last Vital Signs Temp 37.0 C 05/23/20 09:00 Pulse 102 H 05/23/20 09:00 Resp 20 05/23/20 09:00 BP 163/62 H 05/23/20 09:00 Pulse Ox 94 L 05/23/20 09:00 - Orders/Labs/Meds Orders: Active Orders 24 hr Category Date Time Status Chest 1V Frontal [CR] Stat Exams 05/23/20 09:16 Taken CBC WITH AUTO DIFF [HEME] Stat Lab 05/23/20 09:30 Received CORONAVIRUS COVID-19 ESTELLA [MOLEC] Urgent Lab 05/23/20 09:56 Received CULTURE BLOOD [BC] Urgent Lab 05/23/20 09:30 Received CULTURE BLOOD [BC] Urgent Lab 05/23/20 09:40 Received CULTURE URINE [RM] Stat Lab 05/23/20 09:16 Received Blood Culture x2 Reflex Set [OM.PC] Urgent Oth 05/23/20 09:16 Ordered Obtain Bld cultures prior to antibiotics [COMM] Routine Oth 05/23/20 09:16 Ordered Labs: Laboratory Tests 05/23/20 05/23/20 Range/Units 09:16 09:30 Sodium 137 (135-145) mmol/L Potassium 3.7 (3.5-5.3) mmol/L Chloride 100 (100-110) mmol/L Carbon Dioxide 28 (21-32) mmol/L BUN 15 (7-18) mg/dL Creatinine 0.7 (0.55-1.02) mg/dL Est Cr Clr Drug Dosing TNP Estimated GFR (MDRD) > 60 (>60) BUN/Creatinine Ratio 21.4 H (9-20) Glucose 98 (80-116) mg/dL Calcium 9.5 (8.6-10.2) mg/dL Total Bilirubin 0.4 (0.1-1.3) mg/dL AST 17 D (5-25) IU/L ALT 14 D (12-36) U/L Alkaline Phosphatase 43 L (56-112) IU/L Total Protein 7.1 (6.0-8.0) g/dL Albumin 3.1 L (3.2-4.6) g/dL Globulin 4.0 g/dL Albumin/Globulin Ratio 0.8 Urine Color Yellow (YELLOW) Urine Appearance Slightly cloudy (CLEAR) Urine pH 9.0 H (5.0-6.5) Ur Specific [place] 1.010 (1.010-1.025) Urine Protein Negative (NEGATIVE) mg/dL Urine Glucose (UA) Normal (NORMAL) mg/dL Urine Ketones 15 H (NEGATIVE) mg/dL Urine Occult Blood Large H (NEGATIVE) Urine Nitrite Negative (NEGATIVE) Urine Bilirubin Negative (NEGATIVE) Urine Urobilinogen Normal (NEGATIVE) mg/dL Ur Leukocyte Esterase Negative (NEGATIVE) Urine RBC >100 H (0-5) Urine WBC 0-5 (0-5) Ur Squamous Epith Cells Occasional (NS,R,O) Urine Bacteria Rare H (NS) Departure - Departure Time of Disposition: 11:27 Disposition: DC/[facility] to [facility] Condition: Fair Clinical Impression: Hematuria Qualifiers: Hematuria type: asymptomatic microscopic Qualified Code(s): R31.21 - Asymptomatic microscopic hematuria - Discharge Information *PRESCRIPTION DRUG MONITORING PROGRAM REVIEWED*: Not Applicable *COPY OF PRESCRIPTION DRUG MONITORING REPORT IN PATIENT [place]: Not Applicable Forms: ED Department Discharge Sepsis Event Note (ED) - Focused Exam Vital Signs: Vital Signs Temp Pulse Resp BP Pulse Ox 05/23/20 09:00 37.0 C 102 H 20 163/62 H 94 L - Problem List & Annotations (1) Hematuria SNOMED Code(s): 74974726 Code(s): R31.9 - HEMATURIA, UNSPECIFIED Status: Acute Current Visit: Yes Annotation/Comment:: UC set up for asx hematuria. No meds dispensed. Covid 19 test pending. Qualifiers: Hematuria type: asymptomatic microscopic Qualified Code(s): R31.21 - Asymptomatic microscopic hematuria - Problem List Review Problem List Initiated/Reviewed/Updated: Yes - My Orders Last 24 Hours: My Active Orders 05/23/20 09:16 Chest 1V Frontal [CR] Stat CULTURE URINE [RM] Stat Blood Culture x2 Reflex Set [OM.PC] Urgent Obtain Bld cultures prior to antibiotics [COMM] Routine 05/23/20 09:30 CBC WITH AUTO DIFF [HEME] Stat CULTURE BLOOD [BC] Urgent 05/23/20 09:40 CULTURE BLOOD [BC] Urgent 05/23/20 09:56 CORONAVIRUS COVID-19 ESTELLA [MOLEC] Urgent - Assessment/Plan Last 24 Hours: My Active Orders 05/23/20 09:16 Chest 1V Frontal [CR] Stat CULTURE URINE [RM] Stat Blood Culture x2 Reflex Set [OM.PC] Urgent Obtain Bld cultures prior to antibiotics [COMM] Routine 05/23/20 09:30 CBC WITH AUTO DIFF [HEME] Stat CULTURE BLOOD [BC] Urgent 05/23/20 09:40 CULTURE BLOOD [BC] Urgent 05/23/20 09:56 CORONAVIRUS COVID-19 ESTELLA [MOLEC] Urgent Plan: Follow up when results available.
[2020-05-23 15:52] VITALS: BP 150/54; PULSE 95
== END 2020-05-23 11:53 | disposition home or self-care (01) ==
LOC: FB.ED 08:57
DX: R31.21 Asymptomatic microscopic hematuria (principal); I10 Essential (primary) hypertension; I25.10 Atherosclerotic heart disease of native coronary artery without angina pectoris; E78.00 Pure hypercholesterolemia, unspecified; J44.9 Chronic obstructive pulmonary disease, unspecified; G30.9 Alzheimer's disease, unspecified; F02.80 Dementia in other diseases classified elsewhere, unspecified severity, without behavioral disturbance, psychotic disturbance, mood disturbance, and anxiety; F41.9 Anxiety disorder, unspecified; F31.9 Bipolar disorder, unspecified; E11.9 Type 2 diabetes mellitus without complications; E03.9 Hypothyroidism, unspecified; Z79.82 Long term (current) use of aspirin; Z79.899 Other long term (current) drug therapy; Z20.828 Contact with and (suspected) exposure to other viral communicable diseases
CPT/HCPCS: 36415; 71045; 80053; 81001; 87040; 87086; 99283; U0002

== ENCOUNTER 2020-05-25 16:54 | Emergency (ER) | payer MEDICARE, OTHER, MEDICAID ==
--- NOTE | 2020-05-25 17:57 | EDM.PDOC ---
ED HPI GENERAL MEDICAL PROBLEM - General Chief Complaint: General Stated Complaint: WEAKNESS,SOB Time Seen by Provider: 05/25/20 17:50 Source of Information: Reports: Patient, Old Records History Limitations: Reports: No Limitations - History of Present Illness INITIAL COMMENTS - FREE TEXT/NARRATIVE: Kathy Dela Cruz returns to [facility] ED from the [facility] with reported low grade fever, confusion, weakness, and some reported SOB. There is no cough, wheezing, labored respirations, chest pain, abdominal pain or swelling. Upon arrival, patient is alert, orientated and cooperative. Her temp 98.7 deg F, 02 sats 93% on RA. - Related Data Allergies Allergy/AdvReac Type Severity Reaction Status Date / Time No Known Allergies Allergy Verified 05/23/20 09:20 Home Meds: Home Meds Aspirin [Halfprin] 81 mg PO DAILY@119904/04/15 [History] Divalproex Sodium [Depakote ER] 1,000 mg PO BEDTIME 04/04/15 [History] Hydrochlorothiazide 25 mg PO DAILY@119904/04/15 [History] Losartan Potassium [Cozaar] 100 mg PO DAILY@119904/04/15 [History] Sertraline [Zoloft] 200 mg PO 119904/04/15 [History] Acetaminophen/Diphenhydramine [Tylenol Pm Ex-Strength Caplet] 2 tab PO BEDTIME 10/29/15 [History] LORazepam [Ativan] 0.5 mg PO BEDTIME 10/29/15 [History] Acetaminophen [Tylenol] 650 mg PO Q4H PRN 05/19/18 [History] Cholecalciferol (Vitamin D3) [Vitamin D3] 2,000 unit PO DAILY 05/19/18 [History] Donepezil [Aricept] 5 mg PO BEDTIME 05/19/18 [History] Oxybutynin Chloride [Oxybutynin Chloride ER] 15 mg PO BEDTIME 05/19/18 [History] atorvaSTATin [Lipitor] 40 mg PO DAILY@1200 05/19/18 [History] carvediloL [Coreg] 6.25 mg PO ,05/19/18 [History] polyethylene glycoL 3350 [MiraLAX] 1 tsp PO DAILY PRN 05/19/18 [History] Calcium Carbonate [Oysco-500] 1,500 mg PO DAILY 03/03/19 [History] Eyelid Cleanser Combination 5 [Ocusoft Lid Scrub] 1 each EYEBOTH BEDTIME 03/03/19 [History] Levothyroxine [Synthroid] 50 mcg PO DAILY 03/03/19 [History] Glycerin/Propylene Glycol [Artificial Tears Drops] 1 drop EYEBOTH BID 05/23/20 [History] Sennosides [Senna] 8.6 mg PO 05/23/20 [History] Past Medical History HEENT History: Reports: Cataract, Hard of Hearing, Impaired Vision Cardiovascular History: Reports: CAD, Cardiomyopathy, High Cholesterol, Hypertension Respiratory History: Reports: Asthma, COPD, Other (See Below) Other Respiratory History: PHARYNGITIS Gastrointestinal History: Reports: Colon Polyp, GERD Genitourinary History: Reports: Urinary Incontinence, Other (See Below) Other Genitourinary History: BENIGN ESSENTIAL HEMATURIA MANAGER DAIRY History: Reports: , Other (See Below) Other MANAGER DAIRY History: MISCARRIAGE Musculoskeletal History: Reports: Back Pain, Chronic, Fracture, Neck Pain, Chronic, Other (See Below) Other Musculoskeletal History: ABNORMAL BODY STRUCTURE PER HX, NEUROMUSCULAR DISORDER Neurological History: Reports: Alzheimers Disease, Head Trauma, Neuropathy, Peripheral Psychiatric History: Reports: Anxiety, Bipolar, Depression Endocrine/Metabolic History: Reports: Diabetes, Type II, Hypothyroidism Hematologic History: Reports: None Immunologic History: Reports: None Oncologic (Cancer) History: Reports: None Dermatologic History: Reports: None - Infectious Disease History Infectious Disease History: Reports: Chicken Pox, Measles, Mumps - Past Surgical History Head Surgeries/Procedures: Reports: None HEENT Surgical History: Reports: Cataract Surgery, Tonsillectomy, Visual Other HEENT Surgeries/Procedures: RO CATARACT SURGERY ET TREATMENT FOR STRABISMUS Cardiovascular Surgical History: Reports: None Respiratory Surgical History: Reports: None GI Surgical History: Reports: Colonoscopy Female Surgical History: Reports: None Endocrine Surgical History: Reports: None Neurological Surgical History: Reports: None Musculoskeletal Surgical History: Reports: None Oncologic Surgical History: Reports: None Dermatological Surgical History: Reports: None Social & Family History - Family History Family Medical History: No Pertinent Family History - Caffeine Use Caffeine Use: Reports: Coffee, Soda Other Caffeine Use: 6 per day ED ROS GENERAL - Review of Systems Review Of Systems: Comprehensive ROS is negative, except as noted in HPI. ED EXAM, GENERAL - Physical Exam Exam: See Below Exam Limited By: No Limitations General Appearance: Alert, WD/WN, No Apparent Distress, Thin Eye Exam: Bilateral Eye: EOMI, Normal Inspection, PERRL Ears: Normal External Exam Nose: Normal Inspection Throat/Mouth: Normal Inspection, Other (edentulous) Head: Normocephalic Neck: Normal Inspection, Supple Respiratory/Chest: No Respiratory Distress, Lungs Clear, Normal Breath Sounds, No Accessory Muscle Use, Chest Non-Tender Cardiovascular: Regular Rate, Rhythm, No Murmur GI/Abdominal: Soft, Non-Tender, No Organomegaly, No Distention, No Mass (Female) Exam: Deferred Rectal (Female) Exam: Deferred Back Exam: Normal Inspection, Full Range of Motion Extremities: Normal Inspection, Normal Range of Motion, Non-Tender, No Pedal Edema Neurological: Alert, Oriented, CN II-XII Intact, No Motor/Sensory Deficits Psychiatric: Normal Mood, Flat Affect Skin Exam: Warm, Dry, Intact, Normal Color, No Rash Lymphatic: No Adenopathy Course - Vital Signs Last Recorded V/S: Last Vital Signs Temp 36.8 C 05/25/20 16:54 Pulse 78 05/25/20 16:54 Resp 25 H 05/25/20 16:54 BP 120/60 05/25/20 16:54 Pulse Ox 98 05/25/20 16:54 - Orders/Labs/Meds Orders: Active Orders 24 hr Category Date Time Status Chest 1V Frontal [CR] Stat Exams 05/25/20 17:16 Taken BASIC METABOLIC PANEL,BMP [CHEM] Stat Lab 05/25/20 18:00 Received CRP [C-REACTIVE PROTEIN] [CHEM] Stat Lab 05/25/20 18:00 Received DD [D-DIMER QUANTITATIVE] [COAG] Stat Lab 05/25/20 18:00 Received LACTIC ACID [CHEM] Stat Lab 05/25/20 18:00 Received UA W/MICROSCOPIC [URIN] Stat Lab 05/25/20 17:52 Ordered Dextrose 5%-Lactated Ringers 1,000 ml Med 05/25/20 18:30 Active IV ASDIRECTED Sodium Chloride 0.9% [Saline Flush] Med 05/25/20 18:19 Active 10 ml FLUSH ASDIRECTED PRN Peripheral IV Insertion Adult [OM.PC] Routine Oth 05/25/20 18:19 Ordered Medication Orders Dextrose/Lactated Ringer's (Dextrose 5%-Lactated Ringers) 1,000 mls @ 500 mls/hr IV ASDIRECTED CARLOS Sodium Chloride (Saline Flush) 10 ml FLUSH ASDIRECTED PRN PRN Reason: Keep Vein Open Labs: Laboratory Tests 05/25/20 Range/Units 18:00 WBC 15.4 H (3.0-10.3) x10-3/uL RBC 4.54 (3.60-5.20) x10(6)uL Hgb 12.4 (11.4-15.5) g/dL Hct 39.6 (34.2-48.2) % MCV 87.3 (76.7-100.5) fL MCH 27.3 (23.9-33.9) pg MCHC 31.2 L (31.9-34.8) g/dL RDW 14.2 (12.3-16.5) % Plt Count 83 L (151-488) x10(3)uL MPV 10.3 (7.1-12.4) fL Neut % (Auto) 75.5 (30.8-76.2) % Lymph % (Auto) 16.6 L (18.4-52.1) % [place] % (Auto) 7.0 (4.4-15.7) % Eos % (Auto) 0.2 L (0.6-8.1) % Baso % (Auto) 0.7 (0.2-1.5) % Neut # (Auto) 11.7 H (1.5-6.3) x10-3/uL Lymph # (Auto) 2.6 (1.0-4.4) x10-3/uL [place] # (Auto) 1.1 H (0.3-1.0) x10-3/uL Eos # (Auto) 0.0 (0.0-0.8) x10-3/uL Baso # (Auto) 0.1 (0.0-0.1) x10-3/uL Meds: Medications Generic Name Dose Route Start Last Admin Trade Name Freq PRN Reason Stop Dose Admin Dextrose/Lactated Ringer's 1,000 mls @ 500 mls/hr 05/25/20 18:30 Dextrose 5%-Lactated Ringers IV ASDIRECTED CARLOS Sodium Chloride 10 ml 05/25/20 18:19 Saline Flush FLUSH ASDIRECTED PRN Keep Vein Open Departure - Departure Time of Disposition: 18:46 Disposition: Still A Patient 30 Condition: Fair Clinical Impression: Dehydration - Discharge Information *PRESCRIPTION DRUG MONITORING PROGRAM REVIEWED*: Not Applicable *COPY OF PRESCRIPTION DRUG MONITORING REPORT IN PATIENT [place]: Not Applicable Referrals: Zaki Eastman MD [Primary Care Provider] - Forms: ED Department Discharge Sepsis Event Note (ED) - Focused Exam Vital Signs: Vital Signs Temp Pulse Resp BP Pulse Ox 05/25/20 16:54 36.8 C 78 25 H 120/60 98 - Problem List & Annotations (1) Dehydration SNOMED Code(s): 60198316 Code(s): E86.0 - DEHYDRATION Status: Acute Current Visit: Yes Annotation/Comment:: Per oncoming ED provider - Problem List Review Problem List Initiated/Reviewed/Updated: Yes - My Orders Last 24 Hours: My Active Orders 05/25/20 17:16 Chest 1V Frontal [CR] Stat 05/25/20 17:52 UA W/MICROSCOPIC [URIN] Stat 05/25/20 18:00 BASIC METABOLIC PANEL,BMP [CHEM] Stat CRP [C-REACTIVE PROTEIN] [CHEM] Stat DD [D-DIMER QUANTITATIVE] [COAG] Stat LACTIC ACID [CHEM] Stat 05/25/20 18:19 Sodium Chloride 0.9% [Saline Flush] 10 ml FLUSH ASDIRECTED PRN Peripheral IV Insertion Adult [OM.PC] Routine 05/25/20 18:30 Dextrose 5%-Lactated Ringers 1,000 ml IV ASDIRECTED - Assessment/Plan Last 24 Hours: My Active Orders 05/25/20 17:16 Chest 1V Frontal [CR] Stat 05/25/20 17:52 UA W/MICROSCOPIC [URIN] Stat 05/25/20 18:00 BASIC METABOLIC PANEL,BMP [CHEM] Stat CRP [C-REACTIVE PROTEIN] [CHEM] Stat DD [D-DIMER QUANTITATIVE] [COAG] Stat LACTIC ACID [CHEM] Stat 05/25/20 18:19 Sodium Chloride 0.9% [Saline Flush] 10 ml FLUSH ASDIRECTED PRN Peripheral IV Insertion Adult [OM.PC] Routine 05/25/20 18:30 Dextrose 5%-Lactated Ringers 1,000 ml IV ASDIRECTED Plan: Per oncoming ED provider.
[2020-05-25] MEDS ORDERED: Sodium Chloride 0.9% 10 ML Syringe FLUSH PRN (18:19)
[2020-05-25] MEDS ORDERED: Dextrose 5%-Lactated Ringers 1,000 ML IV SCH (18:30)
[2020-05-25 21:14] VITALS: BP 123/88; PULSE 77
--- NOTE | 2020-05-25 21:42 | ER ---
DATE SEEN: 05/25/2020 REASON FOR VISIT: Weakness. HISTORY OF PRESENT ILLNESS: This is a 69-year-old female who saw Dr. Riley and she has been treated for dehydration and recently for a UTI. I took over care at 7 p.m. She has had low-grade fever, confusion, and weakness at the [facility]. She denies any nausea, vomiting, or upper respiratory symptoms. PAST MEDICAL HISTORY: Consistent with Alzheimer disease, hypothyroidism, hypertension, and type 2 diabetes. PHYSICAL EXAMINATION: VITAL SIGNS: Blood pressure 152/57, temperature 98.0, oxygenation 92% room air. CHEST: Clear. CARDIOVASCULAR: Normal. ABDOMEN: Soft. MENTAL STATUS: She is disoriented. LABORATORY DATA: Labs revealed C-reactive protein 16, but UA was negative. White cell count 15.4. IMPRESSION: 1. Dehydration. 2. Urinary tract infection. 3. Dementia. PLAN: She was given some fluids and she was already put on antibiotics 2 days ago. I discharged her back to the [facility] and follow up with PCP in 1 to 2 days. /[id number] LAURA/TIM
--- NOTE | 2020-05-27 12:39 | CR ---
INDICATION: CHEST ONE VIEW: An AP upright view of the chest was obtained 05/25/20 and compared with 03/03/19 and 05/23/20 revealing slightly decreasing markings in the left mid to lower lung field which may be on the basis of early resolving interstitial infiltration. There is again no evidence of consolidating pneumonia or significant effusion. Heart remains normal in size and shape. The aorta is slightly tortuous with calcification in the arch as previously. Overlying EKG leads are noted. IMPRESSION: Stable to slightly improved appearance of the chest with no new acute process. There remains an appearance of interstitial infiltration in the mid to lower lung field on the left and/or fibrosis in that area. MTDD
== END 2020-05-25 21:45 | disposition home or self-care (01) ==
LOC: FB.ED 16:54
DX: E86.0 Dehydration (principal); N39.0 Urinary tract infection, site not specified; G30.9 Alzheimer's disease, unspecified; F02.80 Dementia in other diseases classified elsewhere, unspecified severity, without behavioral disturbance, psychotic disturbance, mood disturbance, and anxiety; E11.9 Type 2 diabetes mellitus without complications; I10 Essential (primary) hypertension
CPT/HCPCS: 36415; 71045; 80048; 81001; 83605; 85025; 85379; 86140; 99284; 99285; J7121

== ENCOUNTER 2020-06-03 13:45 | Emergency (ER) | payer MEDICARE, OTHER, MEDICAID ==
[2020-06-03] MEDS ORDERED: Sulfamethoxazole/Trimethoprim 800-160 MG Tab PO ONE (13:46)
[2020-06-03] MEDS ORDERED: Sodium Chloride 0.9% 10 ML Syringe FLUSH PRN (14:12)
[2020-06-03] MEDS ORDERED: Meclizine 25 MG Tab PO ONE (14:17)
[2020-06-03] MEDS ORDERED: Sodium Chloride 0.9% 1,000 ML IV SCH (14:30)
--- NOTE | 2020-06-03 18:56 | EDM.PDOC ---
ED HPI GENERAL MEDICAL PROBLEM - General Chief Complaint: Behavioral/Psych Stated Complaint: PSYCH Time Seen by Provider: 06/03/20 13:50 Source of Information: Reports: Patient History Limitations: Reports: No Limitations - History of Present Illness INITIAL COMMENTS - FREE TEXT/NARRATIVE: Patient presented to the ED because of altered level of consciousness, confusion, and dizziness. She said she was feeling dizzy yesterday and fell backwards. She c/o headache and neck pain. There was no LOC after the fall. - Related Data Allergies Allergy/AdvReac Type Severity Reaction Status Date / Time No Known Allergies Allergy Verified 06/03/20 15:09 Home Meds: Home Meds Aspirin [Halfprin] 81 mg PO DAILY@1200 04/04/15 [History] Divalproex Sodium [Depakote ER] 1,000 mg PO BEDTIME 04/04/15 [History] Hydrochlorothiazide 25 mg PO DAILY@1200 04/04/15 [History] Losartan Potassium [Cozaar] 100 mg PO DAILY@1200 04/04/15 [History] Sertraline [Zoloft] 200 mg PO 1200 04/04/15 [History] Acetaminophen/Diphenhydramine [Tylenol Pm Ex-Strength Caplet] 2 tab PO BEDTIME 10/29/15 [History] LORazepam [Ativan] 0.5 mg PO BEDTIME 10/29/15 [History] Acetaminophen [Tylenol] 650 mg PO Q4H PRN 05/19/18 [History] Cholecalciferol (Vitamin D3) [Vitamin D3] 2,000 unit PO DAILY 05/19/18 [History] Donepezil [Aricept] 5 mg PO BEDTIME 05/19/18 [History] Oxybutynin Chloride [Oxybutynin Chloride ER] 15 mg PO BEDTIME 05/19/18 [History] atorvaSTATin [Lipitor] 40 mg PO DAILY@1200 05/19/18 [History] carvediloL [Coreg] 6.25 mg PO ,05/19/18 [History] polyethylene glycoL 3350 [MiraLAX] 1 tsp PO DAILY PRN 05/19/18 [History] Calcium Carbonate [Oysco-500] 1,500 mg PO DAILY 03/03/19 [History] Eyelid Cleanser Combination 5 [Ocusoft Lid Scrub] 1 each EYEBOTH BEDTIME 03/03/19 [History] Levothyroxine [Synthroid] 50 mcg PO DAILY 03/03/19 [History] Glycerin/Propylene Glycol [Artificial Tears Drops] 1 drop EYEBOTH BID 05/23/20 [History] Sennosides [Senna] 8.6 mg PO 05/23/20 [History] Dextran 70/Hypromellose [Artificial Tears] 1 each OP ASDIRECTED 06/03/20 [History] Past Medical History HEENT History: Reports: Cataract, Hard of Hearing, Impaired Vision Cardiovascular History: Reports: CAD, Cardiomyopathy, High Cholesterol, Hypertension Respiratory History: Reports: Asthma, COPD, Other (See Below) Other Respiratory History: PHARYNGITIS Gastrointestinal History: Reports: Colon Polyp, GERD Genitourinary History: Reports: Urinary Incontinence, Other (See Below) Other Genitourinary History: BENIGN ESSENTIAL HEMATURIA 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: , Other (See Below) Other LIGHTING TECHNICIAN History: MISCARRIAGE Musculoskeletal History: Reports: Back Pain, Chronic, Fracture, Neck Pain, Chronic, Other (See Below) Other Musculoskeletal History: ABNORMAL BODY STRUCTURE PER HX, NEUROMUSCULAR DISORDER Neurological History: Reports: Alzheimers Disease, Head Trauma, Neuropathy, Peripheral Psychiatric History: Reports: Anxiety, Bipolar, Depression Endocrine/Metabolic History: Reports: Diabetes, Type II, Hypothyroidism Hematologic History: Reports: None Immunologic History: Reports: None Oncologic (Cancer) History: Reports: None Dermatologic History: Reports: None - Infectious Disease History Infectious Disease History: Reports: Chicken Pox, Measles, Mumps - Past Surgical History Head Surgeries/Procedures: Reports: None HEENT Surgical History: Reports: Cataract Surgery, Tonsillectomy, Visual Other HEENT Surgeries/Procedures: RO CATARACT SURGERY ET TREATMENT FOR STRABISMUS Cardiovascular Surgical History: Reports: None Respiratory Surgical History: Reports: None GI Surgical History: Reports: Colonoscopy Female Surgical History: Reports: None Endocrine Surgical History: Reports: None Neurological Surgical History: Reports: None Musculoskeletal Surgical History: Reports: None Oncologic Surgical History: Reports: None Dermatological Surgical History: Reports: None Social & Family History - Family History Family Medical History: No Pertinent Family History - Tobacco Use Tobacco Use Comment: PT IS CONFUSED. UNABLE TO ASSESS. - Caffeine Use Caffeine Use: Reports: Coffee, Soda Other Caffeine Use: 6 per day Caffeine Use Comment: unable to get info at this time. ED ROS GENERAL - Review of Systems Review Of Systems: See Below Constitutional: Reports: No Symptoms HEENT: Reports: No Symptoms Respiratory: Reports: No Symptoms Cardiovascular: Reports: No Symptoms Endocrine: Reports: No Symptoms GI/Abdominal: Reports: No Symptoms : Reports: No Symptoms Musculoskeletal: Reports: No Symptoms Skin: Reports: No Symptoms Neurological: Reports: No Symptoms Psychiatric: Reports: Confusion Hematologic/Lymphatic: Reports: No Symptoms ED EXAM, GENERAL - Physical Exam Exam: See Below Exam Limited By: No Limitations General Appearance: Alert, No Apparent Distress Ears: Normal External Exam Nose: Normal Inspection, Normal Mucosa Throat/Mouth: Normal Inspection, Normal Lips, No Airway Compromise Head: Atraumatic, Normocephalic Neck: Normal Inspection, Supple, Non-Tender, Full Range of Motion Respiratory/Chest: No Respiratory Distress, Lungs Clear, Normal Breath Sounds Cardiovascular: Normal Peripheral Pulses, Regular Rate, Rhythm, No Edema GI/Abdominal: Normal Bowel Sounds, Soft, Non-Tender, No Organomegaly Back Exam: Normal Inspection, Full Range of Motion Course - Vital Signs Text/Narrative:: Labs/EKG/CXR/C-spine CT and Brain MRI was discussed with patient Bactrim DS 1 PO x1 Last Recorded V/S: Last Vital Signs Temp 36.3 C 06/03/20 17:26 Pulse 56 L 06/03/20 17:26 Resp 18 06/03/20 17:26 BP 134/76 06/03/20 17:26 Pulse Ox 96 06/03/20 17:26 - Orders/Labs/Meds Orders: Active Orders 24 hr Category Date Time Status EKG Documentation Completion [RC] ASDIRECTED Care 06/03/20 14:13 Active Brain wo Cont [MR] Stat Exams 06/03/20 14:15 Taken Cervical Spine wo Cont [CT] Stat Exams 06/03/20 15:39 Taken Chest 1V Frontal [CR] Stat Exams 06/03/20 14:12 Taken CULTURE URINE [RM] Stat Lab 06/03/20 15:39 Received Sodium Chloride 0.9% [Normal Saline] 1,000 ml Med 06/03/20 14:30 Active IV ASDIRECTED Sodium Chloride 0.9% [Saline Flush] Med 06/03/20 14:12 Active 10 ml FLUSH ASDIRECTED PRN Saline Lock Insert [OM.PC] Routine Oth 06/03/20 14:12 Ordered EKG 12 Lead [EK] Routine Ther 06/03/20 14:12 Ordered Medication Orders Sodium Chloride (Normal Saline) 1,000 mls @ 500 mls/hr IV ASDIRECTED CARLOS Last Admin: 06/03/20 16:22 Dose: 500 mls/hr Documented by: KIARA Sodium Chloride (Saline Flush) 10 ml FLUSH ASDIRECTED PRN PRN Reason: Keep Vein Open Labs: Laboratory Tests 06/03/20 06/03/20 06/03/20 Range/Units 14:38 14:45 14:45 PT (9.0-11.1) sec INR (1.00-1.24) APTT (24.4-33.2) SECONDS Sodium 137 (135-145) mmol/L Potassium 4.0 (3.5-5.3) mmol/L Chloride 97 L (100-110) mmol/L Carbon Dioxide 36 H (21-32) mmol/L BUN 17 D (7-18) mg/dL Creatinine 0.8 (0.55-1.02) mg/dL Est Cr Clr Drug Dosing TNP Estimated GFR (MDRD) > 60 (>60) BUN/Creatinine Ratio 21.3 H (9-20) Glucose 99 (80-116) mg/dL Calcium 9.9 (8.6-10.2) mg/dL Total Bilirubin 0.3 (0.1-1.3) mg/dL AST 31 H D (5-25) IU/L ALT 17 D (12-36) U/L Alkaline Phosphatase 48 L (56-112) IU/L Troponin I 10.5 (4.0-60.3) pg/mL Total Protein 7.4 (6.0-8.0) g/dL Albumin 2.8 L (3.2-4.6) g/dL Globulin 4.6 g/dL Albumin/Globulin Ratio 0.6 Urine Color (YELLOW) Urine Appearance (CLEAR) Urine pH (5.0-6.5) Ur Specific [place] (1.010-1.025) Urine Protein (NEGATIVE) mg/dL Urine Glucose (UA) (NORMAL) mg/dL Urine Ketones (NEGATIVE) mg/dL Urine Occult Blood (NEGATIVE) Urine Nitrite (NEGATIVE) Urine Bilirubin (NEGATIVE) Urine Urobilinogen (NEGATIVE) mg/dL Ur Leukocyte Esterase (NEGATIVE) U Hyaline Cast (Auto) (NS) Urine RBC (0-5) Urine WBC (0-5) Ur Squamous Epith Cells (NS,R,O) Urine Bacteria (NS) SARS-CoV-2 RNA (ESTELLA) Negative (NEGATIVE) 06/03/20 06/03/20 Range/Units 14:45 15:39 PT 11.3 H (9.0-11.1) sec INR 1.05 (1.00-1.24) APTT 28.0 (24.4-33.2) SECONDS Sodium (135-145) mmol/L Potassium (3.5-5.3) mmol/L Chloride (100-110) mmol/L Carbon Dioxide (21-32) mmol/L BUN (7-18) mg/dL Creatinine (0.55-1.02) mg/dL Est Cr Clr Drug Dosing Estimated GFR (MDRD) (>60) BUN/Creatinine Ratio (9-20) Glucose (80-116) mg/dL Calcium (8.6-10.2) mg/dL Total Bilirubin (0.1-1.3) mg/dL AST (5-25) IU/L ALT (12-36) U/L Alkaline Phosphatase (56-112) IU/L Troponin I (4.0-60.3) pg/mL Total Protein (6.0-8.0) g/dL Albumin (3.2-4.6) g/dL Globulin g/dL Albumin/Globulin Ratio Urine Color Yellow (YELLOW) Urine Appearance Slightly cloudy (CLEAR) Urine pH 7.0 H (5.0-6.5) Ur Specific [place] 1.010 (1.010-1.025) Urine Protein Negative (NEGATIVE) mg/dL Urine Glucose (UA) Normal (NORMAL) mg/dL Urine Ketones 15 H (NEGATIVE) mg/dL Urine Occult Blood Moderate H (NEGATIVE) Urine Nitrite Negative (NEGATIVE) Urine Bilirubin Negative (NEGATIVE) Urine Urobilinogen Normal (NEGATIVE) mg/dL Ur Leukocyte Esterase Large H (NEGATIVE) U Hyaline Cast (Auto) Few H (NS) Urine RBC 0-5 (0-5) Urine WBC 10-20 H (0-5) Ur Squamous Epith Cells Moderate H (NS,R,O) Urine Bacteria Many H (NS) SARS-CoV-2 RNA (ESTELLA) (NEGATIVE) Meds: Medications Generic Name Dose Route Start Last Admin Trade Name Freq PRN Reason Stop Dose Admin Sodium Chloride 1,000 mls @ 500 mls/hr 06/03/20 14:30 06/03/20 16:22 Normal Saline IV 500 mls/hr ASDIRECTED CARLOS Administration Sodium Chloride 10 ml 06/03/20 14:12 Saline Flush FLUSH ASDIRECTED PRN Keep Vein Open Discontinued Medications Generic Name Dose Route Start Last Admin Trade Name Melania PRN Reason Stop Dose Admin Meclizine HCl 50 mg 06/03/20 14:17 06/03/20 14:34 Antivert PO 06/03/20 14:18 50 mg ONETIME ONE Administration Departure - Departure Time of Disposition: 18:55 Disposition: Home, Self-Care 01 Condition: Good Clinical Impression: UTI (urinary tract infection), Dehydration - Discharge Information Instructions: Urinary Tract Infection, Adult, [id number], Dehydration, Elderly, [id number] Referrals: Zaki Eastman MD [Primary Care Provider] - Forms: ED Department Discharge Additional Instructions: Please read discharge instructions on UTI and Dehydration Increase oral fluids Take Bactrim DS twice daily for 5 days Follow up as needed Sepsis Event Note (ED) - Evaluation Sepsis Screening Result: No Definite Risk - Focused Exam Vital Signs: Vital Signs Temp Pulse Resp BP Pulse Ox 06/03/20 17:26 36.3 C 56 L 18 134/76 96 06/03/20 13:45 36.3 C 56 L 18 134/76 96 - My Orders Last 24 Hours: My Active Orders 06/03/20 14:12 Chest 1V Frontal [CR] Stat Sodium Chloride 0.9% [Saline Flush] 10 ml FLUSH ASDIRECTED PRN Saline Lock Insert [OM.PC] Routine EKG 12 Lead [EK] Routine 06/03/20 14:13 EKG Documentation Completion [RC] ASDIRECTED 06/03/20 14:15 Brain wo Cont [MR] Stat 06/03/20 14:30 Sodium Chloride 0.9% [Normal Saline] 1,000 ml IV ASDIRECTED 06/03/20 15:39 Cervical Spine wo Cont [CT] Stat CULTURE URINE [RM] Stat - Assessment/Plan Last 24 Hours: My Active Orders 06/03/20 14:12 Chest 1V Frontal [CR] Stat Sodium Chloride 0.9% [Saline Flush] 10 ml FLUSH ASDIRECTED PRN Saline Lock Insert [OM.PC] Routine EKG 12 Lead [EK] Routine 06/03/20 14:13 EKG Documentation Completion [RC] ASDIRECTED 06/03/20 14:15 Brain wo Cont [MR] Stat 06/03/20 14:30 Sodium Chloride 0.9% [Normal Saline] 1,000 ml IV ASDIRECTED 06/03/20 15:39 Cervical Spine wo Cont [CT] Stat CULTURE URINE [RM] Stat
[2020-06-03 19:24] VITALS: BP 113/76; PULSE 61
--- NOTE | 2020-06-04 06:53 | CR ---
INDICATION: Fall, dizziness. CHEST ONE VIEW: An AP upright portable view of the chest 06/03/20 was compared with 05/25/20 and 05/23/20, again revealing the heart to be normal in size and shape with tortuous aorta calcified in the arch. A definite active infiltrate or effusion was not identified. IMPRESSION: No acute process. MTDD
--- NOTE | 2020-06-04 06:59 | CT ---
INDICATION: Fall, neck pain. CT CERVICAL SPINE WITHOUT CONTRAST: Spiral 2.5 mm axial sections were obtained through the neck without contrast with sagittal and coronal reconstructions 06/03/20 and compared with 03/03/19. Total exam DLP was 282.64 mGy-cm. There is again noted hypertrophic degenerative change and minimal narrowing of the odontoatlantian joint. Hypertrophic degenerative changes and narrowing of the disk spaces noted at C4-5 and to a lesser extent at C5-6. The vertebral body and disk heights were otherwise maintained. There is narrowing of the C4-5 neural foramina bilaterally. Overall bone density appeared to be fairly normal. No evidence of an acute fracture or dislocation could be identified with vertebral elements appearing to be fairly well aligned. Hypertrophic changes are noted at the uncinate joints of C2-3, most prominent on the left and at C3-4 more prominent on the right and bilaterally more severely at C4-5. Relatively minimal degenerative change is noted at the uncinate joints of C5-6. IMPRESSION: 1. No acute fracture or dislocation. 2. Hypertrophic degenerative changes and disk disease as noted above. 3. Cervical lymphadenopathy is moderate and nonspecific. Report was called to Dr. Jaeger at 1625 hours. [facility]
== END 2020-06-03 19:30 | disposition home or self-care (01) ==
LOC: FB.ED 13:45
DX: N39.0 Urinary tract infection, site not specified (principal); E86.0 Dehydration; I25.10 Atherosclerotic heart disease of native coronary artery without angina pectoris; E78.00 Pure hypercholesterolemia, unspecified; I10 Essential (primary) hypertension; J44.9 Chronic obstructive pulmonary disease, unspecified; G30.9 Alzheimer's disease, unspecified; F02.80 Dementia in other diseases classified elsewhere, unspecified severity, without behavioral disturbance, psychotic disturbance, mood disturbance, and anxiety; F31.9 Bipolar disorder, unspecified; F41.9 Anxiety disorder, unspecified; E03.9 Hypothyroidism, unspecified; Z20.828 Contact with and (suspected) exposure to other viral communicable diseases; Z79.82 Long term (current) use of aspirin; Z79.899 Other long term (current) drug therapy; E11.42 Type 2 diabetes mellitus with diabetic polyneuropathy
CPT/HCPCS: 36415; 70551; 71045; 72125; 80053; 81001; 84484; 85610; 85730; 87086; 87088; 87186; 93005; 99284; 99285; A9270; J7030; U0002

== ENCOUNTER 2020-09-30 08:34 | Emergency (ER) | payer MEDICARE, OTHER, MEDICAID ==
--- NOTE | 2020-09-30 09:14 | EDM.PDOC ---
ED HPI GENERAL MEDICAL PROBLEM - General Chief Complaint: Head Injury Stated Complaint: FELL AND HIT HEAD Time Seen by Provider: 09/30/20 09:10 Source of Information: Reports: Patient, Custodial Records History Limitations: Reports: Other (Patient with cognitive impairment.) - History of Present Illness INITIAL COMMENTS - FREE TEXT/NARRATIVE: 69-year-old female who reports at 4 AM today she was outside at the [facility] and was smoking a cigarette and her wheeled walker slipped off of the concrete patio causing her to lose her balance and to fall and she struck her head on the concrete and also landed on her left side. She states that there was no loss of consciousness but she was dazed and since that time she has had a left occipital headache with some nausea and some dizziness. She is complaining of 10/10 level pain in her left occiput that is a sharp pain and she has noticed a swelling in that area. The pain is worse with palpation. She denies any neck or back pain. She states she has some mild pain in her left knee but she is bending it normally and was able to bear weight she reports that she was feeling well prior to this. There was no antecedent dizziness or weakness. No chest pain. No shortness of breath. No cough. No dysuria. She reports that she has been eating and drinking normally. She does have the nausea but no vomiting. There are no other associated signs or symptoms. There are no other modifying factors. 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: Other (see below) (Nothing.) - Related Data Allergies Allergy/AdvReac Type Severity Reaction Status Date / Time No Known Allergies Allergy Verified 06/03/20 15:09 Home Meds: Home Meds Aspirin [Halfprin] 81 mg PO DAILY@1200 04/04/15 [History] Divalproex Sodium [Depakote ER] 1,000 mg PO BEDTIME 04/04/15 [History] Hydrochlorothiazide 25 mg PO DAILY@119904/04/15 [History] Losartan Potassium [Cozaar] 100 mg PO DAILY@119904/04/15 [History] Sertraline [Zoloft] 200 mg PO 1200 04/04/15 [History] Acetaminophen/Diphenhydramine [Tylenol Pm Ex-Strength Caplet] 2 tab PO BEDTIME 10/29/15 [History] LORazepam [Ativan] 0.5 mg PO BEDTIME 10/29/15 [History] Acetaminophen [Tylenol] 650 mg PO Q4H PRN 05/19/18 [History] Cholecalciferol (Vitamin D3) [Vitamin D3] 2,000 unit PO DAILY 05/19/18 [History] Donepezil [Aricept] 5 mg PO BEDTIME 05/19/18 [History] Oxybutynin Chloride [Oxybutynin Chloride ER] 15 mg PO BEDTIME 05/19/18 [History] atorvaSTATin [Lipitor] 40 mg PO DAILY@1200 05/19/18 [History] carvediloL [Coreg] 6.25 mg PO 12,20 05/19/18 [History] polyethylene glycoL 3350 [MiraLAX] 1 tsp PO DAILY PRN 05/19/18 [History] Calcium Carbonate [Oysco-500] 1,500 mg PO DAILY 03/03/19 [History] Eyelid Cleanser Combination 5 [Ocusoft Lid Scrub] 1 each EYEBOTH BEDTIME 03/03/19 [History] Levothyroxine [Synthroid] 50 mcg PO DAILY 03/03/19 [History] Glycerin/Propylene Glycol [Artificial Tears Drops] 1 drop EYEBOTH BID 05/23/20 [History] Sennosides [Senna] 8.6 mg PO 05/23/20 [History] Dextran 70/Hypromellose [Artificial Tears] 1 each OP ASDIRECTED 06/03/20 [History] Past Medical History HEENT History: Reports: Cataract, Hard of Hearing, Impaired Vision Cardiovascular History: Reports: CAD, Cardiomyopathy, High Cholesterol, Hypertension Respiratory History: Reports: Asthma, COPD Gastrointestinal History: Reports: Colon Polyp, GERD Genitourinary History: Reports: Urinary Incontinence, Other (See Below) Other Genitourinary History: BENIGN ESSENTIAL HEMATURIA PUBLIC POLICY ANALYST History: Reports: Other (See Below) Other PUBLIC POLICY ANALYST History: MISCARRIAGE Musculoskeletal History: Reports: Back Pain, Chronic, Fracture, Neck Pain, Chronic Neurological History: Reports: Alzheimers Disease, Head Trauma, Neuropathy, Peripheral Psychiatric History: Reports: Anxiety, Bipolar, Depression Endocrine/Metabolic History: Reports: Diabetes, Type II, Hypothyroidism - Infectious Disease History Infectious Disease History: Reports: Chicken Pox, Measles, Mumps - Past Surgical History HEENT Surgical History: Reports: Cataract Surgery, Tonsillectomy, Visual Other HEENT Surgeries/Procedures: RO CATARACT SURGERY ET TREATMENT FOR STRABISMUS GI Surgical History: Reports: Colonoscopy Social & Family History - Tobacco Use Tobacco Use Status *Q: Current Every Day Tobacco User - Caffeine Use Caffeine Use: Reports: Coffee, Soda Other Caffeine Use: 6 per day Caffeine Use Comment: unable to get info at this time. - Alcohol Use Alcohol Use History: No - Living Situation & Occupation Living situation: Reports: Extended Care Facility (Patient is living at the [facility]) Occupation: Retired ED ROS GENERAL - Review of Systems Review Of Systems: See Below Constitutional: Reports: No Symptoms HEENT: Reports: No Symptoms Respiratory: Reports: No Symptoms Cardiovascular: Reports: No Symptoms Endocrine: Reports: No Symptoms GI/Abdominal: Reports: Nausea. Denies: Vomiting : Reports: No Symptoms Musculoskeletal: Reports: No Symptoms Skin: Reports: No Symptoms Neurological: Reports: Dizziness, Headache Psychiatric: Reports: No Symptoms Hematologic/Lymphatic: Reports: No Symptoms Immunologic: Reports: No Symptoms ED EXAM, HEAD INJURY - Physical Exam Exam: See Below Exam Limited By: No Limitations General Appearance: Alert, WD/WN, Mild Distress (Appears in some pain.) Head: Scalp Swelling (Left occipital) Nexus Criteria: Altered Level of Consciousness Eyes: Bilateral Eye: EOMI, Normal Inspection Ears: Normal External Exam, Hearing Grossly Normal Nose: Normal Inspection, Normal Mucousa, No Blood Throat/Mouth: Normal Oropharynx, Normal Voice, No Airway Compromise Neck: Non-Tender, Normal Alignment Respiratory: No Respiratory Distress, Lungs Clear, Normal Breath Sounds, No Accessory Muscle Use, Chest Non-Tender Cardiovascular: Normal Peripheral Pulses, Regular Rate, Rhythm, No Murmur GI/Abdominal Exam: Normal Bowel Sounds, Soft, Non-Tender, No Mass Back Exam: Normal Inspection Extremities: Normal Inspection, Normal Range of Motion, Non-Tender, No Pedal Edema, Normal Capillary Refill, Other (No hip or knee tenderness.) 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 Bailey. CT scan of cervical spine showed degenerative changes but no fracture or malalignment per Dr. Bailey. - Re-Assessments/Exams Free Text/Narrative Re-Assessment/Exam: 09/30/20 10:50: Patient remains awake and alert. She denies any headache at present and currently denies any dizziness or nausea. She has remained hemodynamically and neurologically stable. She is alert and appropriately interactive. The CT scans of her head and cervical spine show no fractures or bleeding. I will have the nursing staff ambulate the patient with a walker and if she does this well, she will be stable for return to the [facility]. Departure - Departure Time of Disposition: 11:41 Disposition: DC/Tfer to SNF 03 Condition: Good Clinical Impression: Fall as cause of accidental injury in residential institution as place of occurrence Qualifiers: Encounter type: initial encounter Qualified Code(s): W19.XXXA - Unspecified fall, initial encounter Head contusion Qualifiers: Encounter type: initial encounter Contusion of head detail: scalp Qualified Code(s): S00.03XA - Contusion of scalp, initial encounter Mild concussion Qualifiers: Encounter type: initial encounter Loss of consciousness presence/duration: without LOC Qualified Code(s): S06.0X0A - Concussion without loss of consciousness, initial encounter - Discharge Information Instructions: Head Injury, Adult, [id number], Facial or Scalp Contusion, [id number], Concussion, Adult, [id number] Referrals: Zaki Eastman MD [Primary Care Provider] - Forms: ED Department Discharge Additional Instructions: The CAT scans of her head and neck showed no fracture and no bleeding. She appears to have bruising to her left occiput. She may also have a mild concussion. You can give her Tylenol 1000 mg by mouth every 6 hours as needed for pain. She did not appear to have any other injuries. She was able to ambulate in the emergency department with a walker with assistance from the nursing staff. She should have assisted ambulation. Back to the emergency department for unrelenting vomiting, severe headache, change in level of responsiveness or any other concerning sign or symptom. Sepsis Event Note (ED) - Focused Exam Vital Signs: Vital Signs Temp Pulse Resp BP Pulse Ox 09/30/20 08:35 36.6 C 50 L 18 164/60 H 97
--- NOTE | 2020-09-30 10:59 | CT ---
INDICATION: Fall with head injury - hit back of head. CT HEAD WITHOUT CONTRAST: Spiral 3.75 mm axial sections were obtained through the brain without contrast with axial, sagittal and coronal reconstructions 09/30/20 and compared with 04/12/20. Total exam DLP was 1270.76 mGy-cm. The paranasal sinuses and mastoid air cells appear to be well aerated. No cranial abnormality was identified - no cranial fracture site is seen. There is an area of soft tissue swelling in the left posterior parietal scalp compatible with a site of injury. There may be a small scalp hematoma or periosteal reaction. No shift of midline structures was noted. There is significant prominence of the ventricles compatible with moderate central atrophy which appears stable. A mild degree or cortical atrophy is also stable, with prominence of mild degree of the cortical sulci. White matter changes are mild in degree with patchy decreased density again noted compatible with a mild degree of microvascular disease. This appears to be fairly stable. No acute intracranial abnormality was identified - no bleeding site or hematoma was seen. IMPRESSION: 1. No acute intracranial abnormality. 2. Generalized atrophy more prominent centrally appears fairly stable. 3. Cerebrovascular disease with internal carotid artery calcifications and mild degree of white matter change compatible with microvascular disease, although other cause of leukoencephalopathy, cannot be excluded. 4. Soft tissue injury noted at the scalp posterior parietal area on the left. Report was called to Dr. Veronica at 1034 hours, 09/30/20 . [facility]
--- NOTE | 2020-09-30 11:09 | CT ---
INDICATION: Fall with head injury. CT CERVICAL SPINE WITHOUT CONTRAST: Spiral 2.5 mm axial sections were obtained through the brain without contrast with sagittal and coronal reconstructions 09/30/20 and compared with 06/03/20. Total exam DLP was 271.87 mGy-cm. The atlas and odontoid appear to be intact. There is a dextroconvex scoliosis at the lower cervical spine which is perhaps slightly more prominent than on the previous examination, Hypertrophic degenerative changes are noted anteriorly and posteriorly at C4-5 with narrowing of the disk space and significant appearing impingement on the neural foramina at that level. Some chondral cystic changes again noted at C4 inferior endplate. Relatively minimal hypertrophic changes are noted off vertebral bodies anteriorly at C5-6 with minimal narrowing of the disk space at that level. Vertebral body and disk heights were otherwise well maintained. Moderate hypertrophic degenerative changes are again noted at the odontoatlantian joint with some areas of narrowing of that joint. Bone density appeared normal. Prevertebral space appeared to be normal. No evidence of an acute fracture or dislocation was seen. Hypertrophic degenerative changes are noted at the uncinate joints of C3-4 and to a greater extent C4-5 and again milder extent at C5-6 and also on the right at C6-7. IMPRESSION: 1. No acute fracture or dislocation. 2. Osteoarthritis and degenerative disk disease as noted above. Report was called to Dr. Veronica at 1034 hours, 09/30/20. [facility]
[2020-09-30 12:00] VITALS: BP 155/97; PULSE 59
== END 2020-09-30 12:08 ==
LOC: FB.ED 08:34
DX: S06.0X0A Concussion without loss of consciousness, initial encounter (principal); S00.03XA Contusion of scalp, initial encounter; M25.562 Pain in left knee; I25.10 Atherosclerotic heart disease of native coronary artery without angina pectoris; E78.00 Pure hypercholesterolemia, unspecified; I10 Essential (primary) hypertension; J44.9 Chronic obstructive pulmonary disease, unspecified; E11.42 Type 2 diabetes mellitus with diabetic polyneuropathy; E03.9 Hypothyroidism, unspecified; G30.9 Alzheimer's disease, unspecified; F02.80 Dementia in other diseases classified elsewhere, unspecified severity, without behavioral disturbance, psychotic disturbance, mood disturbance, and anxiety; F17.210 Nicotine dependence, cigarettes, uncomplicated; Z79.82 Long term (current) use of aspirin; Z79.899 Other long term (current) drug therapy; W01.198A Fall on same level from slipping, tripping and stumbling with subsequent striking against other object, initial encounter
CPT/HCPCS: 70450; 72125; 99284-25

== ENCOUNTER 2021-06-06 19:10 | Emergency (ER) | payer MEDICARE, OTHER, MEDICAID ==
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
[2021-06-06] MEDS ORDERED: Haloperidol Lactate 5 MG/ML SDV IM ONE (20:38)
[2021-06-06] MEDS ORDERED: LORazepam 2 MG/ML SDV IM ONE (20:38)
[2021-06-06] MEDS ORDERED: Magnesium Oxide 400 MG Tab PO ONE (23:30)
[2021-06-07 00:16] VITALS: BP 170/64; PULSE 52
--- NOTE | 2021-06-07 00:51 | PCM.EKG ---
#1 Interpretation EKG Date: 06/06/21 Time: 19:59 Rhythm: NSR Rate (Beats/Min): 55 [place]: LAD-Left [place] Deviation P-Wave: Present QRS: LBBB ST-T: Other (Nonspecific) QT: Prolonged HI/PQ Interval: Prolonged HI interval Comparison: No Change (No change from EKG performed on 06/03/2020.)
== END 2021-06-07 00:05 | disposition home or self-care (01) ==
LOC: FB.ED 19:10
DX: F03.91 Unspecified dementia, unspecified severity, with behavioral disturbance (principal); I11.9 Hypertensive heart disease without heart failure; E83.42 Hypomagnesemia; I25.10 Atherosclerotic heart disease of native coronary artery without angina pectoris; E78.00 Pure hypercholesterolemia, unspecified; J44.9 Chronic obstructive pulmonary disease, unspecified; K21.9 Gastro-esophageal reflux disease without esophagitis; E03.9 Hypothyroidism, unspecified; E11.9 Type 2 diabetes mellitus without complications; Z72.0 Tobacco use; Z79.82 Long term (current) use of aspirin; Z79.899 Other long term (current) drug therapy
CPT/HCPCS: 36415; 70450; 71045; 80053; 80307; 81001; 83735; 84484; 85025; 86140; 93005; 96372; 99285; A9270; J1630; J2060